=== PATIENT | female | born 1980 | race Caucasian/White ===

== ENCOUNTER 2017-03-10 01:14 | Emergency (ER) | payer MEDICAID ==
[~2017-03-10] VITALS: Ht 160 cm; Wt 68.2 kg
[2017-03-10 02:06] LABS: BASO % 0.4 % (0.0-2.0); EOS # 0.1 (0.0-0.7); EOS % 1.2 % (0-4.0); GRAN # 3.3 (1.4-6.5); GRAN % 48.7 % (42.2-75.2); HEMATOCRIT 41.8 % (37.0-47.0); LYMPH # 2.8 (1.2-3.4); MEAN CELL VOLUME 93 fl (80.0-100.0); MEAN CORPUSCULAR HEMOGLOBIN 31 pg (27.0-31.0); MEAN CORPUSCULAR HGB CONC 34 g/dl (33.0-37.0); MEAN PLATELET VOLUME 9.1 fl (7.4-10.4); MONO # 0.5 (0.1-0.6); MONO % 7.6 % (1.7-9.3); PLATELET COUNT 217 K/mm3 (130-400); RED BLOOD COUNT 4.49 M/mm3 (4.10-5.30); REDCELL DISTRIBUTION WIDTH-CV 14.7 % (11.5-14.5); WHITE BLOOD COUNT 6.7 K/mm3 (4.8-10.8)
[2017-03-10 02:16] LABS: PH 7 (5-8); SQUAMOUS EPITHELIAL 0-2 /hpf; URINE APPEARANCE Clear; URINE BACTERIA None Seen /hpf; URINE BILIRUBIN Negative (NEGATIVE); URINE BLOOD Negative (NEGATIVE); URINE COLOR Straw; URINE GLUCOSE Negative (NEGATIVE); URINE KETONE Negative (NEGATIVE); URINE RBC 0-2 /hpf; URINE UROBILINOGEN Negative (NEGATIVE)
[2017-03-10 02:20] LABS: ADJUSTED CALCIUM 8.6 mg/dL (8.4-10.2); ALBUMIN 4.6 gm/dL (3.5-5.0); BILIRUBIN,TOTAL 0.4 mg/dL (0.0-1.0); CALCIUM 9.1 mg/dL (8.4-10.2); CREATININE, serum 0.64 mg/dL (0.52-1.25); POTASSIUM 3.7 mmol/L (3.4-5.0); TOTAL PROTEIN 7.8 gm/dL (6.4-8.2)
[2017-03-10 03:41] LABS: AMPHETAMINE URINE NEGATIVE; BARBITURATES URINE NEGATIVE; BENZODIAZEPINES URINE NEGATIVE; BUPRENORPHINE URINE NEGATIVE; METHADONE URINE NEGATIVE; OPIATES URINE NEGATIVE; OXYCODONE URINE NEGATIVE; PHENCYCLIDINE URINE NEGATIVE; PROPOXYPHENE URINE NEGATIVE; THC CANNABINOIDS URINE NEGATIVE
[2017-03-10 12:47] VITALS: BP 113/76; PULSE 84
[2017-03-10] MEDS ORDERED: NORCO 325 MG-51 TAB PO (12:48)
== END 2017-03-10 13:20 | disposition home or self-care (01) ==
LOC: COL.ER 01:14 → EDBD 01:19 → COL.ER 13:20
PROVIDERS: Emergency Medicine
DX: T74.21XA Adult sexual abuse, confirmed, initial encounter (principal); F10.129 Alcohol abuse with intoxication, unspecified; R10.9 Unspecified abdominal pain; F99 Mental disorder, not otherwise specified; F43.10 Post-traumatic stress disorder, unspecified; Z90.49 Acquired absence of other specified parts of digestive tract; Z32.02 Encounter for pregnancy test, result negative; Y90.6 Blood alcohol level of 120-199 mg/100 ml
CPT/HCPCS: J0696; J1885; J2405; J2550; J2765; J3010; J7030; J7040; Q9967

== ENCOUNTER → 2017-03-10 | Outpatient (REF) ==
[~2017-03-10] VITALS: Ht 160 cm; Wt 68.2 kg
[~2017-03-10] MED LIST: AMITRIPTYLINE H50 M1 PO; ATIVAN 1MG T1 MG/TAB PO; DESYREL 100MG100 MG PO; EFFEXOR-XR150 MG PO; IMITREX 25MG TA25 MG; INDERAL 20MG20 MG PO; KLONOPIN 1MG1 MG PO; LEXAPRO 10MG10 MG PO; NORCO 325 MG-51 TAB PO; PRENATAL1 TA2 PO; PROZAC40 MG PO; SEROQUEL 2525 MG/TAB PO; SLEEP AID25 M1 PO; ZOCOR 20MG20 MG PO
[2017-03-10 10:55] VITALS: BP 102/76; PULSE 87
== END ==
LOC: COL.ER 09:48
DX: T76.21XA Adult sexual abuse, suspected, initial encounter (principal)

== ENCOUNTER 2017-03-21 01:31 | Inpatient (IN) | payer MEDICAID ==
[~2017-03-21] VITALS: Ht 157.5 cm; Wt 59.1 kg
[2017-03-21 02:11] LABS: RED BLOOD COUNT 3.73 M/mm3 (4.10-5.30); WHITE BLOOD COUNT 5.1 K/mm3 (4.8-10.8)
[2017-03-21 02:12] LABS: BASO % 0.4 % (0.0-2.0); EOS % 0.8 % (0-4.0); GRAN # 2.6 (1.4-6.5); LYMPH # 1.9 (1.2-3.4); LYMPH % 37.9 % (20.0-51.0); MEAN CELL VOLUME 93 fl (80.0-100.0); MEAN CORPUSCULAR HGB CONC 34 g/dl (33.0-37.0); MEAN PLATELET VOLUME 9.2 fl (7.4-10.4); MONO # 0.6 (0.1-0.6); MONO % 10.7 % (1.7-9.3); PLATELET COUNT 191 K/mm3 (130-400)
[2017-03-21 02:31] LABS: COLLECTION METHOD CATHETER
[2017-03-21 02:32] LABS: HEMATOCRIT 34.8 % (37.0-47.0); HEMOGLOBIN 11.7 g/dl (12.5-16.0); MEAN CORPUSCULAR HEMOGLOBIN 31 pg (27.0-31.0)
[2017-03-21 02:40] LABS: MUCOUS Present /lpf; PH 5 (5-8); SQUAMOUS EPITHELIAL 0-2 /hpf; URINE APPEARANCE Clear; URINE BACTERIA None Seen /hpf; URINE BILIRUBIN Negative (NEGATIVE); URINE BLOOD 1+ (NEGATIVE); URINE COLOR Yellow; URINE GLUCOSE Negative (NEGATIVE); URINE KETONE 1+ (NEGATIVE); URINE LEUKOCYTE ESTERASE Negative (NEGATIVE); URINE PROTEIN(semi-quant) Negative (NEGATIVE); URINE WBC 0-2 /hpf
[2017-03-21 02:48] LABS: ADJUSTED CALCIUM 8.5 mg/dL (8.4-10.2); ALANINE AMINOTRANSFERASE 35 U/L (9-52); ALBUMIN 3.8 gm/dL (3.5-5.0); ALKALINE PHOSPHATASE 49 U/L (50-136); ANION GAP 9 mmol/L (7-16); BILIRUBIN,TOTAL 0.6 mg/dL (0.0-1.0); BLOOD UREA NITROGEN 20 mg/dL (7-17); C-REACTIVE PROTEIN < 0.5 mg/dL (0.0-0.9); CALCIUM 8.3 mg/dL (8.4-10.2); CARBON DIOXIDE 22 mmol/L (22-30); CHLORIDE 107 mmol/L (98-107); CREATININE, serum 0.66 mg/dL (0.52-1.25); GLUCOSE 78 mg/dL (74-106); LIPASE 213 U/L (23-300); POTASSIUM 3.6 mmol/L (3.4-5.0); SODIUM 139 mmol/L (137-145); TOTAL PROTEIN 6.5 gm/dL (6.4-8.2)
[2017-03-21 03:06] LABS: HCG,QUANTITATIVE 54 mIU/mL (0-5)
[2017-03-21] MEDS ORDERED: PROZAC60 MG (04:42)
[2017-03-21] MEDS ORDERED: WELLBUTRIN XL300 M1 (04:43)
[2017-03-21] MEDS ORDERED: ZOFRAN 4MG T4 MG/TAB PO (04:43)
[2017-03-21] MEDS ORDERED: LIDODERM 5% PATC1 EA (04:44)
[2017-03-21 05:42] VITALS: BP 101/72; PULSE 84; TEMP 97.9
[2017-03-21 06:47] LABS: BASO % 0.7 % (0.0-2.0); EOS # 0.1 (0.0-0.7); EOS % 1.2 % (0-4.0); GRAN # 1.9 (1.4-6.5); GRAN % 43.9 % (42.2-75.2); HEMOGLOBIN 13.1 g/dl (12.5-16.0); LYMPH # 1.9 (1.2-3.4); LYMPH % 44.7 % (20.0-51.0); MEAN CELL VOLUME 95 fl (80.0-100.0); MEAN CORPUSCULAR HEMOGLOBIN 31 pg (27.0-31.0); MEAN CORPUSCULAR HGB CONC 33 g/dl (33.0-37.0); MEAN PLATELET VOLUME 9.2 fl (7.4-10.4); MONO # 0.4 (0.1-0.6); MONO % 9.5 % (1.7-9.3); PLATELET COUNT 186 K/mm3 (130-400); WHITE BLOOD COUNT 4.3 K/mm3 (4.8-10.8)
[2017-03-21 08:53] VITALS: BP 103/61; PULSE 95; TEMP 97.6
[2017-03-21 16:58] LABS: AMPHETAMINE URINE POSITIVE; BARBITURATES URINE NEGATIVE; BENZODIAZEPINES URINE POSITIVE; BUPRENORPHINE URINE NEGATIVE; METHADONE URINE NEGATIVE; OPIATES URINE NEGATIVE; OXYCODONE URINE NEGATIVE; PHENCYCLIDINE URINE NEGATIVE; PROPOXYPHENE URINE NEGATIVE; THC CANNABINOIDS URINE NEGATIVE; TRICYCLIC ANTIDEPRESS URINE NEGATIVE
[2017-03-21 17:07] VITALS: BP 92/58; PULSE 79; TEMP 97.8
[2017-03-21 17:10] VITALS: BP 92/58; PULSE 79; TEMP 97.6
[2017-03-21 21:00] VITALS: BP 113/68; PULSE 89; TEMP 98.2
[2017-03-22 01:00] VITALS: BP 94/63; PULSE 69; TEMP 98.9
[2017-03-22 05:30] VITALS: BP 115/74; PULSE 93; TEMP 98.3
[2017-03-22 07:21] LABS: BASO % 0.5 % (0.0-2.0); EOS # 0.1 (0.0-0.7); EOS % 1.4 % (0-4.0); GRAN # 2.1 (1.4-6.5); GRAN % 48.8 % (42.2-75.2); LYMPH # 1.7 (1.2-3.4); MEAN CELL VOLUME 96 fl (80.0-100.0); MEAN CORPUSCULAR HGB CONC 33 g/dl (33.0-37.0); MEAN PLATELET VOLUME 9.5 fl (7.4-10.4); MONO # 0.4 (0.1-0.6); MONO % 9.1 % (1.7-9.3); PLATELET COUNT 167 K/mm3 (130-400); RED BLOOD COUNT 3.52 M/mm3 (4.10-5.30); WHITE BLOOD COUNT 4.3 K/mm3 (4.8-10.8)
[2017-03-22 07:23] LABS: HEMATOCRIT 33.8 % (37.0-47.0); HEMOGLOBIN 11.1 g/dl (12.5-16.0); MEAN CORPUSCULAR HEMOGLOBIN 32 pg (27.0-31.0)
[2017-03-22 07:45] VITALS: BP 97/67; PULSE 71; TEMP 98
[2017-03-22] MEDS ORDERED: PERCOCET 325 MG1 TA2 PO (09:10)
[2017-03-22] MEDS ORDERED: PROZAC60 MG PO (09:10)
== END 2017-03-22 15:00 | disposition home or self-care (01) | DRG 781 ==
LOC: COL.ER 01:31 → OB 05:15
PROVIDERS: Emergency Medicine; Obstetrics & Gynecology
DX: O26.891 Other specified pregnancy related conditions, first trimester (principal); R10.2 Pelvic and perineal pain; Z3A.01 Less than 8 weeks gestation of pregnancy
CPT/HCPCS: J1170; J2270; J2405; J2550; J7030; J7120

== ENCOUNTER 2017-04-18 00:05 | Emergency (ER) | payer MEDICAID ==
[~2017-04-18] VITALS: Ht 170.2 cm; Wt 63.6 kg
[~2017-04-18 00:05] MED LIST changes: +ADDERALL30 MG PO; +FLAGYL500 MG PO; +LIDODERM 5% PATC1 EA; +PERCOCET 325 MG1 TA2 PO; +PHENERGAN 25 TA25 MG PO; +PROZAC60 MG; +PROZAC60 MG PO; +WELLBUTRIN XL300 M1; +ZOFRAN 4MG T4 MG/TAB PO
[2017-04-18 00:06] VITALS: BP 115/79; TEMP 97.6
[2017-04-18 00:34] LABS: BASO % 0.3 % (0.0-2.0); EOS # 0.1 (0.0-0.7); EOS % 0.6 % (0-4.0); GRAN % 68.9 % (42.2-75.2); HEMATOCRIT 39.5 % (37.0-47.0); HEMOGLOBIN 13.3 g/dl (12.5-16.0); LYMPH % 22.7 % (20.0-51.0); MEAN CELL VOLUME 94 fl (80.0-100.0); MEAN CORPUSCULAR HEMOGLOBIN 32 pg (27.0-31.0); MEAN CORPUSCULAR HGB CONC 34 g/dl (33.0-37.0); MEAN PLATELET VOLUME 9.2 fl (7.4-10.4); MONO # 0.6 (0.1-0.6); MONO % 7.2 % (1.7-9.3); PLATELET COUNT 215 K/mm3 (130-400); WHITE BLOOD COUNT 8.7 K/mm3 (4.8-10.8)
[2017-04-18 00:43] LABS: ADJUSTED CALCIUM 9.2 mg/dL (8.4-10.2); ALBUMIN 4.2 gm/dL (3.5-5.0); BILIRUBIN,TOTAL 0.4 mg/dL (0.0-1.0); CALCIUM 9.4 mg/dL (8.4-10.2); CREATININE, serum 0.59 mg/dL (0.52-1.25); POTASSIUM 3.7 mmol/L (3.4-5.0); TOTAL PROTEIN 7.2 gm/dL (6.4-8.2)
[2017-04-18] MEDS ORDERED: PHENERGAN 25 TA25 MG PO (02:22)
[2017-04-18 02:42] LABS: BASO % 0.3 % (0.0-2.0); EOS % 0.5 % (0-4.0); GRAN # 5.5 (1.4-6.5); GRAN % 69.4 % (42.2-75.2); HEMATOCRIT 38.5 % (37.0-47.0); HEMOGLOBIN 13.1 g/dl (12.5-16.0); LYMPH # 1.8 (1.2-3.4); LYMPH % 22.6 % (20.0-51.0); MEAN CELL VOLUME 93 fl (80.0-100.0); MEAN CORPUSCULAR HEMOGLOBIN 32 pg (27.0-31.0); MEAN CORPUSCULAR HGB CONC 34 g/dl (33.0-37.0); MEAN PLATELET VOLUME 9.1 fl (7.4-10.4); MONO # 0.6 (0.1-0.6); MONO % 7.1 % (1.7-9.3); PLATELET COUNT 193 K/mm3 (130-400); RED BLOOD COUNT 4.16 M/mm3 (4.10-5.30)
[2017-04-18 03:06] VITALS: PULSE 91
== END 2017-04-18 03:06 | disposition home or self-care (01) ==
LOC: COL.ER 00:05
PROVIDERS: Family Medicine
DX: O9A.211 Injury, poisoning and certain other consequences of external causes complicating pregnancy, first trimester (principal); S10.93XA Contusion of unspecified part of neck, initial encounter; S00.83XA Contusion of other part of head, initial encounter; S40.021A Contusion of right upper arm, initial encounter; Z3A.08 8 weeks gestation of pregnancy; W10.9XXA Fall (on) (from) unspecified stairs and steps, initial encounter
CPT/HCPCS: J2270; J2550; J7030

== ENCOUNTER 2017-05-01 20:23 | Emergency (ER) | payer MEDICAID ==
[~2017-05-01] VITALS: Ht 157.5 cm; Wt 59.1 kg
[~2017-05-01 20:23] MED LIST changes: -CEPHALEXIN500 M1 PO; -ZOFRAN ODT4 MG PO
[2017-05-01 21:41] LABS: BASO % 0.2 % (0.0-2.0); EOS % 0.3 % (0-4.0); GRAN # 4.1 (1.4-6.5); GRAN % 65.4 % (42.2-75.2); HEMATOCRIT 38.8 % (37.0-47.0); HEMOGLOBIN 13.4 g/dl (12.5-16.0); LYMPH # 1.5 (1.2-3.4); LYMPH % 23.8 % (20.0-51.0); MEAN CELL VOLUME 92 fl (80.0-100.0); MEAN CORPUSCULAR HEMOGLOBIN 32 pg (27.0-31.0); MEAN CORPUSCULAR HGB CONC 35 g/dl (33.0-37.0); MEAN PLATELET VOLUME 9.1 fl (7.4-10.4); MONO # 0.6 (0.1-0.6); MONO % 10.1 % (1.7-9.3); PLATELET COUNT 188 K/mm3 (130-400); RED BLOOD COUNT 4.22 M/mm3 (4.10-5.30); WHITE BLOOD COUNT 6.3 K/mm3 (4.8-10.8)
[2017-05-01 22:02] LABS: HIV 1/2 Antibodies Non-Reactive; HIV-1p24 Antigen Non-Reactive
[2017-05-01 22:06] LABS: ALANINE AMINOTRANSFERASE 23 U/L (9-52); ALBUMIN 3.8 gm/dL (3.5-5.0); ALKALINE PHOSPHATASE 56 U/L (50-136); ANION GAP 8 mmol/L (7-16); BILIRUBIN,TOTAL 0.4 mg/dL (0.0-1.0); BLOOD UREA NITROGEN 10 mg/dL (7-17); CALCIUM 8.8 mg/dL (8.4-10.2); CARBON DIOXIDE 23 mmol/L (22-30); CHLORIDE 102 mmol/L (98-107); GLUCOSE 91 mg/dL (74-106); LIPASE 226 U/L (23-300); MAGNESIUM 1.9 mg/dL (1.6-2.3); PHOSPHOROUS 3.8 mg/dL (2.5-4.5); POTASSIUM 3.9 mmol/L (3.4-5.0); SODIUM 134 mmol/L (137-145)
[2017-05-01 22:15] LABS: ACETAMINOPHEN < 10 ug/mL (10-30); ALCOHOL(ethanol),MEDICAL < 10 mg/dL; SALICYLATE < 1.0 mg/dL
[2017-05-01 22:50] LABS: COLLECTION METHOD CLEAN CATCH
[2017-05-01 22:57] LABS: MUCOUS Present /lpf; PH 7 (5-8); SQUAMOUS EPITHELIAL 0-2 /hpf; URINE APPEARANCE Clear; URINE BACTERIA None Seen /hpf; URINE BILIRUBIN Negative (NEGATIVE); URINE BLOOD Negative (NEGATIVE); URINE COLOR Straw; URINE GLUCOSE Negative (NEGATIVE); URINE KETONE Trace (NEGATIVE); URINE LEUKOCYTE ESTERASE Negative (NEGATIVE); URINE PROTEIN(semi-quant) Negative (NEGATIVE); URINE RBC 0-2 /hpf; URINE UROBILINOGEN Negative (NEGATIVE); URINE WBC 0-2 /hpf
[2017-05-01 22:59] LABS: HCG,QUANTITATIVE 38693 mIU/mL (0-5)
[2017-05-01 23:05] LABS: AMPHETAMINE URINE NEGATIVE; BARBITURATES URINE NEGATIVE; BENZODIAZEPINES URINE NEGATIVE; BUPRENORPHINE URINE NEGATIVE; METHADONE URINE NEGATIVE; OPIATES URINE NEGATIVE; OXYCODONE URINE NEGATIVE; PHENCYCLIDINE URINE NEGATIVE; PROPOXYPHENE URINE NEGATIVE; THC CANNABINOIDS URINE NEGATIVE; TRICYCLIC ANTIDEPRESS URINE NEGATIVE
[2017-05-02 03:24] VITALS: PULSE 91
[2017-05-02 06:18] VITALS: BP 120/46
== END 2017-05-02 06:48 | disposition home or self-care (01) ==
LOC: COL.ER 20:23
PROVIDERS: Emergency Medicine
DX: O9A.411 Sexual abuse complicating pregnancy, first trimester (principal); S00.83XA Contusion of other part of head, initial encounter; O99.331 Smoking (tobacco) complicating pregnancy, first trimester; F17.210 Nicotine dependence, cigarettes, uncomplicated; Z3A.10 10 weeks gestation of pregnancy; Y04.2XXA Assault by strike against or bumped into by another person, initial encounter; Y07.01 Husband, perpetrator of maltreatment and neglect; Y92.410 Unspecified street and highway as the place of occurrence of the external cause
CPT/HCPCS: J0696; J1170; J2550; J3010; J7030

== ENCOUNTER → 2017-05-01 | Outpatient (REF) ==
[~2017-05-01] VITALS: Ht 157.5 cm; Wt 59.1 kg
[~2017-05-01] MED LIST changes: +CEPHALEXIN500 M1 PO; +ZOFRAN ODT4 MG PO
[2017-05-01 20:29] VITALS: BP 102/68; PULSE 80
== END ==
LOC: COL.ER 20:54
DX: Z04.41 Encounter for examination and observation following alleged adult rape (principal)

== ENCOUNTER 2017-05-14 23:00 | Emergency (ER) | payer MEDICAID ==
[~2017-05-14] VITALS: Ht 157.5 cm; Wt 61.4 kg
[2017-05-14 23:18] VITALS: TEMP 98.6
[2017-05-14] MEDS ORDERED: ZOFRAN ODT4 MG PO (23:18)
[2017-05-14 23:20] LABS: BASO % 0.4 % (0.0-2.0); EOS # 0.1 (0.0-0.7); EOS % 1.5 % (0-4.0); GRAN # 4.4 (1.4-6.5); GRAN % 59.1 % (42.2-75.2); HEMATOCRIT 38.1 % (37.0-47.0); HEMOGLOBIN 12.7 g/dl (12.5-16.0); LYMPH # 2.3 (1.2-3.4); LYMPH % 30.6 % (20.0-51.0); MEAN CELL VOLUME 94 fl (80.0-100.0); MEAN CORPUSCULAR HEMOGLOBIN 31 pg (27.0-31.0); MEAN CORPUSCULAR HGB CONC 33 g/dl (33.0-37.0); MEAN PLATELET VOLUME 8.8 fl (7.4-10.4); MONO # 0.6 (0.1-0.6); MONO % 8.3 % (1.7-9.3); PLATELET COUNT 211 K/mm3 (130-400); RED BLOOD COUNT 4.05 M/mm3 (4.10-5.30); WHITE BLOOD COUNT 7.4 K/mm3 (4.8-10.8)
[2017-05-14 23:30] LABS: ADJUSTED CALCIUM 8.9 mg/dL (8.4-10.2); ALBUMIN 3.9 gm/dL (3.5-5.0); BILIRUBIN,TOTAL 0.3 mg/dL (0.0-1.0); CALCIUM 8.8 mg/dL (8.4-10.2); CREATININE, serum 0.55 mg/dL (0.52-1.25); POTASSIUM 3.8 mmol/L (3.4-5.0); TOTAL PROTEIN 6.9 gm/dL (6.4-8.2)
[2017-05-14 23:46] LABS: PROLACTIN 18.6 ng/mL (3.0-18.6)
[2017-05-14 23:57] LABS: COLLECTION METHOD RANDOM VOIDED
[2017-05-15 00:12] LABS: MUCOUS Present /lpf; PH 7 (5-8); URINE APPEARANCE Clear; URINE BACTERIA Rare /hpf; URINE BILIRUBIN Negative (NEGATIVE); URINE BLOOD Negative (NEGATIVE); URINE COLOR Yellow; URINE GLUCOSE Negative (NEGATIVE); URINE KETONE Negative (NEGATIVE); URINE LEUKOCYTE ESTERASE Negative (NEGATIVE); URINE PROTEIN(semi-quant) Negative (NEGATIVE); URINE RBC 0-2 /hpf; URINE UROBILINOGEN Negative (NEGATIVE); URINE WBC 0-2 /hpf
[2017-05-15 01:00] VITALS: BP 102/54; PULSE 88
== END 2017-05-15 01:33 | disposition home or self-care (01) ==
LOC: COL.ER 23:00
PROVIDERS: Family Medicine
DX: R56.9 Unspecified convulsions (principal)
CPT/HCPCS: J2550; J7030

== ENCOUNTER 2017-06-14 22:37 | Emergency (ER) | payer MEDICAID ==
[~2017-06-14 22:37] MED LIST changes: +ZOFRAN ODT4 MG PO
[2017-06-14 22:49] VITALS: TEMP 99.1
[2017-06-15 00:05] LABS: BASO % 0.1 % (0.0-2.0); EOS # 0.1 (0.0-0.7); EOS % 1.3 % (0-4.0); GRAN # 4.2 (1.4-6.5); GRAN % 59.8 % (42.2-75.2); HEMATOCRIT 37.3 % (37.0-47.0); LYMPH # 2.1 (1.2-3.4); LYMPH % 30.3 % (20.0-51.0); MEAN CELL VOLUME 92 fl (80.0-100.0); MEAN CORPUSCULAR HEMOGLOBIN 32 pg (27.0-31.0); MEAN CORPUSCULAR HGB CONC 35 g/dl (33.0-37.0); MEAN PLATELET VOLUME 8.8 fl (7.4-10.4); MONO # 0.6 (0.1-0.6); MONO % 8.4 % (1.7-9.3); PLATELET COUNT 202 K/mm3 (130-400); RED BLOOD COUNT 4.05 M/mm3 (4.10-5.30); REDCELL DISTRIBUTION WIDTH-CV 13.5 % (11.5-14.5)
[2017-06-15 00:15] LABS: ALBUMIN 3.6 gm/dL (3.5-5.0); BILIRUBIN,TOTAL 0.2 mg/dL (0.0-1.0); CREATININE, serum 0.56 mg/dL (0.52-1.25); POTASSIUM 3.6 mmol/L (3.4-5.0); TOTAL PROTEIN 6.7 gm/dL (6.4-8.2)
[2017-06-15 00:31] LABS: PROLACTIN 26.6 ng/mL (3.0-18.6)
[2017-06-15 00:43] LABS: COLLECTION METHOD CLEAN CATCH
[2017-06-15 00:54] LABS: AMORPHOUS CRYSTAL Present /uL; MUCOUS Present /lpf; PH 8 (5-8); URINE APPEARANCE Cloudy; URINE BACTERIA Many /hpf; URINE BILIRUBIN Negative (NEGATIVE); URINE BLOOD Negative (NEGATIVE); URINE COLOR Yellow; URINE GLUCOSE Negative (NEGATIVE); URINE KETONE Negative (NEGATIVE); URINE LEUKOCYTE ESTERASE Negative (NEGATIVE); URINE NITRATE Negative (NEGATIVE); URINE PROTEIN(semi-quant) Negative (NEGATIVE); URINE RBC 0-2 /hpf; URINE UROBILINOGEN Negative (NEGATIVE)
[2017-06-15] MEDS ORDERED: FLAGYL500 MG PO (01:50)
[2017-06-15] MEDS ORDERED: CEPHALEXIN500 M1 PO (01:50)
[2017-06-15 02:20] VITALS: BP 114/66; PULSE 93
== END 2017-06-15 02:22 | disposition home or self-care (01) ==
LOC: COL.ER 22:37
PROVIDERS: Emergency Medicine
DX: O23.592 Infection of other part of genital tract in pregnancy, second trimester (principal); O23.42 Unspecified infection of urinary tract in pregnancy, second trimester; O99.342 Other mental disorders complicating pregnancy, second trimester; F32.9 Major depressive disorder, single episode, unspecified; F41.9 Anxiety disorder, unspecified; O99.332 Smoking (tobacco) complicating pregnancy, second trimester; F17.210 Nicotine dependence, cigarettes, uncomplicated; Z3A.16 16 weeks gestation of pregnancy; Z93.3 Colostomy status; Z90.89 Acquired absence of other organs; Z98.890 Other specified postprocedural states
CPT/HCPCS: J7030

== ENCOUNTER 2017-06-17 20:29 | Emergency (ER) | payer MEDICAID ==
[~2017-06-17] VITALS: Ht 157.5 cm; Wt 64.5 kg
[~2017-06-17 20:29] MED LIST changes: +CEPHALEXIN500 M1 PO
[2017-06-17 22:13] LABS: INFLUENZA A NEGATIVE; INFLUENZA B NEGATIVE
[2017-06-17 23:55] VITALS: TEMP 99.9
[2017-06-18 02:00] VITALS: BP 99/62; PULSE 106
== END 2017-06-18 02:00 | disposition home or self-care (01) ==
LOC: COL.ER 20:29
PROVIDERS: Nurse Practitioner
DX: O99.512 Diseases of the respiratory system complicating pregnancy, second trimester (principal); J11.1 Influenza due to unidentified influenza virus with other respiratory manifestations; O99.342 Other mental disorders complicating pregnancy, second trimester; F41.9 Anxiety disorder, unspecified; F32.9 Major depressive disorder, single episode, unspecified; F90.9 Attention-deficit hyperactivity disorder, unspecified type; Z3A.17 17 weeks gestation of pregnancy; Z87.891 Personal history of nicotine dependence
CPT/HCPCS: J2550; J7030

== ENCOUNTER 2017-10-25 23:04 | Outpatient (CLI) | payer MEDICAID ==
[~2017-10-25] VITALS: Ht 157.5 cm; Wt 70.0 kg
[2017-10-25 23:00] VITALS: BP 102/68; PULSE 123; TEMP 98.5
[2017-10-25 23:35] VITALS: BP 107/65; PULSE 103
[2017-10-25] MEDS ORDERED: TYLENOL 325MG325 MG PO (23:43)
[2017-10-25] MEDS ORDERED: BENADRYL25 M2 PO (23:43)
[2017-10-26 00:07] VITALS: BP 102/68; PULSE 123; TEMP 98.5
== END 2017-10-26 | disposition home or self-care (01) ==
LOC: LDRO 23:04
DX: O46.8X3 Other antepartum hemorrhage, third trimester (principal); Z3A.35 35 weeks gestation of pregnancy

== ENCOUNTER 2017-11-16 04:19 | Inpatient (IN) | payer MEDICAID ==
[2017-11-16] VITALS (46 sets, daily range): BP systolic 64–124; BP diastolic 33–83; PULSE 43–150; TEMP 97.7–98.8
[~2017-11-16] VITALS: Ht 162.6 cm; Wt 70.9 kg
[~2017-11-16 04:19] MED LIST changes: +BENADRYL25 M2 PO; +TYLENOL 325MG325 MG PO
[2017-11-16 05:15] LABS: BASO % 0.4 % (0.0-2.0); EOS # 0.1 (0.0-0.7); EOS % 1.1 % (0-4.0); GRAN # 4.7 (1.4-6.5); GRAN % 65.8 % (42.2-75.2); HEMOGLOBIN 10.3 g/dl (12.5-16.0); LYMPH # 1.7 (1.2-3.4); LYMPH % 23.7 % (20.0-51.0); MEAN CELL VOLUME 84 fl (80.0-100.0); MEAN CORPUSCULAR HEMOGLOBIN 27 pg (27.0-31.0); MEAN CORPUSCULAR HGB CONC 32 g/dl (33.0-37.0); MEAN PLATELET VOLUME 9.4 fl (7.4-10.4); MONO # 0.6 (0.1-0.6); MONO % 8.3 % (1.7-9.3); PLATELET COUNT 184 K/mm3 (130-400); RED BLOOD COUNT 3.88 M/mm3 (4.10-5.30); REDCELL DISTRIBUTION WIDTH-CV 15.1 % (11.5-14.5)
[2017-11-16 05:17] LABS: HEMATOCRIT 32.6 % (37.0-47.0)
[2017-11-16] MEDS ORDERED: BUSPAR10 MG PO (05:54)
[2017-11-16] MEDS ORDERED: KLONOPIN2 MG PO (05:55)
[2017-11-16] MEDS ORDERED: PROZAC40 MG PO (05:56)
[2017-11-16] MEDS ORDERED: VISTARIL 2525 MG/CAP PO (05:56)
[2017-11-16] MEDS ORDERED: VALTREX1 GM PO (05:57)
[2017-11-16 08:08] LABS: TRICYCLIC ANTIDEPRESS URINE NEGATIVE
[2017-11-17 02:00] VITALS: BP 102/57; PULSE 92; TEMP 98.1
[2017-11-17] MEDS ORDERED: PERCOCET 325 MG1 TA2 PO (08:22)
[2017-11-17] MEDS ORDERED: MOTRIN 800800 MG/TAB PO (08:22)
[2017-11-17 08:25] VITALS: BP 101/67; PULSE 96; TEMP 97
[2017-11-17 17:00] VITALS: BP 99/69; PULSE 84; TEMP 97.7
[2017-11-17 19:43] VITALS: BP 86/46; PULSE 87; TEMP 97.8
[2017-11-17 20:00] LABS: BASO % 0.2 % (0.0-2.0); EOS # 0.1 (0.0-0.7); EOS % 1.2 % (0-4.0); GRAN # 6.1 (1.4-6.5); GRAN % 67.2 % (42.2-75.2); LYMPH # 2.3 (1.2-3.4); MEAN CELL VOLUME 85 fl (80.0-100.0); MEAN CORPUSCULAR HGB CONC 31 g/dl (33.0-37.0); MEAN PLATELET VOLUME 9.1 fl (7.4-10.4); MONO # 0.5 (0.1-0.6); PLATELET COUNT 194 K/mm3 (130-400); RED BLOOD COUNT 3.72 M/mm3 (4.10-5.30); REDCELL DISTRIBUTION WIDTH-CV 15.3 % (11.5-14.5)
[2017-11-17 20:05] LABS: HEMATOCRIT 31.5 % (37.0-47.0); HEMOGLOBIN 9.8 g/dl (12.5-16.0); MEAN CORPUSCULAR HEMOGLOBIN 26 pg (27.0-31.0)
[2017-11-17 21:38] VITALS: BP 107/78; PULSE 84
[2017-11-18 07:03] VITALS: BP 101/67; PULSE 80; TEMP 98.3
== END 2017-11-18 13:30 | disposition home or self-care (01) | DRG 775 ==
LOC: LDRO 04:19 → OB 04:20 → LDR 04:20 → OB 14:00
PROVIDERS: Obstetrics & Gynecology
PROC: 10D07Z6 Extraction of Products of Conception, Vacuum, Via Natural or Artificial Opening (ICD-10-PCS; principal; 2017-11-16)
PROC: 0HQ9XZZ Repair Perineum Skin, External Approach (ICD-10-PCS; 2017-11-16)
DX: O76 Abnormality in fetal heart rate and rhythm complicating labor and delivery (principal); O70.0 First degree perineal laceration during delivery; Z3A.38 38 weeks gestation of pregnancy; Z37.0 Single live birth; O99.344 Other mental disorders complicating childbirth; F41.8 Other specified anxiety disorders; F43.12 Post-traumatic stress disorder, chronic; F90.9 Attention-deficit hyperactivity disorder, unspecified type
CPT/HCPCS: J2210; J2590; J2795; J7120

== ENCOUNTER 2017-12-20 16:28 | Emergency (ER) | payer MEDICAID ==
[~2017-12-20] VITALS: Ht 154.9 cm; Wt 60.0 kg
[~2017-12-20 16:28] MED LIST changes: +BUSPAR10 MG PO; +KLONOPIN2 MG PO; +MOTRIN 800800 MG/TAB PO; +VALTREX1 GM PO; +VISTARIL 2525 MG/CAP PO
[2017-12-20 16:34] VITALS: TEMP 98.1
[2017-12-20] MEDS ORDERED: ADDERALL5 MG PO (16:49)
[2017-12-20] MEDS ORDERED: WELLBUTRIN 75MG75 MG PO (16:49)
[2017-12-20 18:32] VITALS: BP 125/93; PULSE 99
== END 2017-12-20 18:32 | disposition home or self-care (01) ==
LOC: COL.ER 16:28
DX: T74.21XA Adult sexual abuse, confirmed, initial encounter (principal); T74.11XA Adult physical abuse, confirmed, initial encounter; F17.210 Nicotine dependence, cigarettes, uncomplicated; F43.10 Post-traumatic stress disorder, unspecified

== ENCOUNTER 2018-05-14 06:55 | Emergency (ER) | payer MEDICAID ==
[~2018-05-14] VITALS: Ht 157.5 cm; Wt 59.1 kg
[~2018-05-14 06:55] MED LIST changes: +ADDERALL5 MG PO; +WELLBUTRIN 75MG75 MG PO
[2018-05-14 07:42] VITALS: BP 123/64; PULSE 85; TEMP 97.6
== END 2018-05-14 07:43 | disposition home or self-care (01) ==
LOC: COL.ER 06:55
DX: L30.9 Dermatitis, unspecified (principal)

== ENCOUNTER 2018-10-02 18:42 | Emergency (ER) | payer MEDICAID ==
[~2018-10-02] VITALS: Ht 154.9 cm; Wt 61.9 kg
[~2018-10-02 18:42] MED LIST changes: -ADDERALL30 MG; -KLONOPIN 1MG1 MG; -WELLBUTRIN XL150 MG PO
[2018-10-02 19:00] VITALS: TEMP 97.4
[2018-10-02] MEDS ORDERED: PROZAC60 MG (19:25)
[2018-10-02] MEDS ORDERED: WELLBUTRIN XL150 MG PO (19:25)
[2018-10-02] MEDS ORDERED: ADDERALL30 MG (19:26)
[2018-10-02 22:41] VITALS: BP 121/84; PULSE 101
== END 2018-10-02 22:49 | disposition home or self-care (01) ==
LOC: COL.ER 18:42
DX: T76.21XA Adult sexual abuse, suspected, initial encounter (principal); S00.83XA Contusion of other part of head, initial encounter; S10.93XA Contusion of unspecified part of neck, initial encounter; S30.1XXA Contusion of abdominal wall, initial encounter; S30.0XXA Contusion of lower back and pelvis, initial encounter
CPT/HCPCS: J1885; J2405

== ENCOUNTER → 2018-10-02 | Outpatient (CLI) | payer MEDICAID ==
[~2018-10-02] MED LIST changes: +ADDERALL30 MG; +KLONOPIN 1MG1 MG; +WELLBUTRIN XL150 MG PO
--- NOTE | 2018-10-02 22:45 | NUR ---
Per E.R. Nurse pt is refusing examination at this time and is to be discharged from the Emergency Room to return home.
== END ==
LOC: LDRO 18:48
DX: Z04.41 Encounter for examination and observation following alleged adult rape (principal)

== ENCOUNTER → 2018-10-02 | Outpatient (REF) ==
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
== END ==
LOC: LDRO 18:50
DX: Z04.41 Encounter for examination and observation following alleged adult rape (principal)

== ENCOUNTER 2018-10-04 02:28 | Outpatient (CLI) | payer MEDICAID ==
[~2018-10-04 02:28] MED LIST changes: -KLONOPIN 1MG1 MG
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
[2018-10-05] MEDS ORDERED: KLONOPIN 1MG1 MG (01:54)
== END 2018-10-04 13:45 | disposition still patient (30) ==
LOC: LDRO 02:28 → LDR 03:00 → LDRO 13:45 → LDR 10-06 03:00
DX: Z04.41 Encounter for examination and observation following alleged adult rape (principal)
CPT/HCPCS: OP

== ENCOUNTER 2018-10-04 13:49 | Day surgery (SDC) | payer MEDICAID ==
[~2018-10-04] VITALS: Ht 154.9 cm; Wt 60.4 kg
[2018-10-04 14:48] LABS: BASO % 0.4 % (0.0-2.0); EOS # 0.1 (0.0-0.7); EOS % 1.3 % (0-4.0); GRAN # 2.6 (1.4-6.5); GRAN % 49.5 % (42.2-75.2); HEMATOCRIT 37.5 % (37.0-47.0); HEMOGLOBIN 12.4 g/dl (12.5-16.0); LYMPH # 1.8 (1.2-3.4); LYMPH % 34.8 % (20.0-51.0); MEAN CELL VOLUME 86 fl (80.0-100.0); MEAN CORPUSCULAR HEMOGLOBIN 28 pg (27.0-31.0); MEAN CORPUSCULAR HGB CONC 33 g/dl (33.0-37.0); MEAN PLATELET VOLUME 9.4 fl (7.4-10.4); MONO # 0.7 (0.1-0.6); MONO % 13.8 % (1.7-9.3); PLATELET COUNT 188 K/mm3 (130-400); RED BLOOD COUNT 4.36 M/mm3 (4.10-5.30); REDCELL DISTRIBUTION WIDTH-CV 14.9 % (11.5-14.5)
[2018-10-04 14:58] LABS: ALBUMIN 3.8 gm/dL (3.5-5.0); BILIRUBIN,TOTAL 0.6 mg/dL (0.0-1.0); CREATININE, serum 0.7 (0.52-1.25); POTASSIUM 3.6 mmol/L (3.4-5.0); TOTAL PROTEIN 6.6 gm/dL (6.4-8.2)
[2018-10-04 16:22] LABS: TRICYCLIC ANTIDEPRESS URINE NEGATIVE
--- NOTE | 2018-10-04 22:45 | NUR ---
Pt arrived to room 342, transferred per bed by PACU staff. Pt very drowsy but easy to wake, answers yes/no questions appropriately. VS WNL. IV patent, IVF's infusing. Pt denies pain or other c/o. Call light in reach, bed alarm on. Will monitor closely.
[2018-10-04 23:03] VITALS: BP 118/74; PULSE 69; TEMP 98.1
[2018-10-05] VITALS: BP 118/74; PULSE 69; TEMP 98.1
[2018-10-05 00:30] VITALS: PULSE 72
[2018-10-05 01:00] VITALS: PULSE 88
[2018-10-05] MEDS ORDERED: KLONOPIN 1MG1 MG (01:54)
[2018-10-05 04:07] VITALS: BP 106/64; PULSE 78; TEMP 98
--- NOTE | 2018-10-05 05:01 | NUR ---
Pt resting in bed, condition unchanged. Pt has remained drowsy but easy to wake, rested well c very few needs since admit. No needs at this time. Call light in reach.
--- NOTE | 2018-10-05 07:46 | NUR ---
Patient has woke up. Tearful this am. purse lip breathing, tried to be a positve with her. She is Wondering where her son is. Spoke with OB nurse who will bring her son up stairs.She will also talk to SANE nurse. Patient is concerned about missing a [facility] interview today. SHe is wanting her cell phine that her son has. She reports pain & does not understand why. Voicemail left with Dr. Engel. WIll await a return call.
--- NOTE | 2018-10-05 08:05 | NUR ---
Patient medicated with motrin for pain. She is going to order breakfast. Provided ice & Pepsi for patient. She again asked about her son. Called house supervisoer & OB nurse again. She is wanting to see her son.
[2018-10-05 08:38] VITALS: BP 118/78; PULSE 98; TEMP 99
--- NOTE | 2018-10-05 08:50 | NUR ---
Spoke with social work, offered crisis center services to patient, she looked at me & asked why she would need that. SHe is eating breakfast & going to get dressed
--- NOTE | 2018-10-05 09:19 | NUR ---
Patient ready to discharge called 3 times that she needed to leave. Reviewed with patient all paperwork & patient ambulated out with Shirt Trimmer to her car. Int DC. Patient dressed and took all belongings. patient son with her
--- NOTE | 2018-10-05 09:30 | NUR ---
SW spoke with nurse to inquire if patient would like SW help with getting set up with the [facility]. Nurse reported patient does not feel the need to utilize that fci.
--- NOTE | 2018-10-05 10:19 | NUR ---
Initial visit; Patient thanked Staff Psychologist for introducing herself and offering God's blessings.
== END 2018-10-05 09:20 | disposition home or self-care (01) ==
LOC: COL.ER 13:49 → SDCO 20:15 → COL.ER 20:15 → SURG 20:15 → SDCO 10-05 09:20 → SURG 10-05 09:20
PROVIDERS: Emergency Medicine
DX: T18.5XXA Foreign body in anus and rectum, initial encounter (principal); T74.21XA Adult sexual abuse, confirmed, initial encounter; F17.210 Nicotine dependence, cigarettes, uncomplicated; F32.9 Major depressive disorder, single episode, unspecified; F41.9 Anxiety disorder, unspecified
CPT/HCPCS: OP; J1170; J1885; J2060; J2250; J2405; J2704; J3010; J7030; Q9967

== ENCOUNTER → 2018-10-04 | Outpatient (REF) ==
[~2018-10-04] MED LIST changes: +ADDERALL30 MG; +KLONOPIN 1MG1 MG; +WELLBUTRIN XL150 MG PO
== END ==
LOC: LDRO 02:30
DX: Z04.41 Encounter for examination and observation following alleged adult rape (principal)
CPT/HCPCS: J2250

== ENCOUNTER → 2018-10-04 | Emergency (ER) | payer MEDICAID ==
[~2018-10-04] VITALS: Ht 154.9 cm; Wt 61.4 kg
[2018-10-04 02:12] VITALS: BP 137/88; PULSE 96; TEMP 97.4
== END ==
LOC: COL.ER 02:09
DX: T76.21XA Adult sexual abuse, suspected, initial encounter (principal)
CPT/HCPCS: J2270; J2550

== ENCOUNTER 2019-01-09 13:38 | Emergency (ER) | payer MEDICAID ==
[~2019-01-09] VITALS: Ht 154.9 cm; Wt 58.2 kg
[~2019-01-09 13:38] MED LIST changes: +KLONOPIN 1MG1 MG
[2019-01-09 13:40] VITALS: TEMP 98.3
[2019-01-09] MEDS ORDERED: WELLBUTRIN XL300 M1 PO (14:28)
[2019-01-09] MEDS ORDERED: CELEXA40 MG PO (14:30)
[2019-01-09 14:47] LABS: BASO % 0.3 % (0.0-2.0); EOS % 0.3 % (0-4.0); GRAN # 3.5 (1.4-6.5); GRAN % 61.6 % (42.2-75.2); HEMATOCRIT 36.9 % (37.0-47.0); HEMOGLOBIN 12.1 g/dl (12.5-16.0); LYMPH # 1.5 (1.2-3.4); LYMPH % 26.9 % (20.0-51.0); MEAN CELL VOLUME 86 fl (80.0-100.0); MEAN CORPUSCULAR HEMOGLOBIN 28 pg (27.0-31.0); MEAN CORPUSCULAR HGB CONC 33 g/dl (33.0-37.0); MEAN PLATELET VOLUME 9.1 fl (7.4-10.4); MONO # 0.6 (0.1-0.6); MONO % 10.7 % (1.7-9.3); PLATELET COUNT 275 K/mm3 (130-400); RED BLOOD COUNT 4.29 M/mm3 (4.10-5.30); REDCELL DISTRIBUTION WIDTH-CV 15.5 % (11.5-14.5)
[2019-01-09 15:04] LABS: ALBUMIN 4.2 gm/dL (3.5-5.0); BILIRUBIN,TOTAL 0.7 mg/dL (0.0-1.0); CALCIUM 9.1 mg/dL (8.4-10.2); CREATININE, serum 0.62 (0.52-1.25); POTASSIUM 3.8 mmol/L (3.4-5.0); TOTAL PROTEIN 7.2 gm/dL (6.4-8.2)
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
[2019-01-09] MEDS ORDERED: NORCO 325 MG-51 TAB PO (17:20)
[2019-01-09 17:37] LABS: COLLECTION METHOD CLEAN CATCH
[2019-01-09 17:50] LABS: MUCOUS Present /lpf; PH 5 (5-8); URINE APPEARANCE Clear; URINE BACTERIA None Seen /hpf; URINE BILIRUBIN Negative (NEGATIVE); URINE BLOOD Negative (NEGATIVE); URINE COLOR Yellow; URINE GLUCOSE Negative (NEGATIVE); URINE KETONE 1+ (NEGATIVE); URINE LEUKOCYTE ESTERASE Negative (NEGATIVE); URINE NITRATE Negative (NEGATIVE); URINE PROTEIN(semi-quant) Negative (NEGATIVE); URINE RBC None Seen /hpf; URINE UROBILINOGEN Negative (NEGATIVE)
[2019-01-09] MEDS ORDERED: ZOFRAN ODT4 MG PO (18:26)
[2019-01-09 18:43] VITALS: BP 122/82; PULSE 104
== END 2019-01-09 18:43 | disposition home or self-care (01) ==
LOC: COL.ER 13:38
PROVIDERS: Physician Assistant
DX: R10.32 Left lower quadrant pain (principal); R55 Syncope and collapse; F41.9 Anxiety disorder, unspecified; F32.9 Major depressive disorder, single episode, unspecified; F43.10 Post-traumatic stress disorder, unspecified; F98.8 Other specified behavioral and emotional disorders with onset usually occurring in childhood and adolescence; F17.210 Nicotine dependence, cigarettes, uncomplicated; Z91.410 Personal history of adult physical and sexual abuse
CPT/HCPCS: J1170; J1885; J2060; J2405; J7030; Q9967

== ENCOUNTER 2019-07-25 12:46 | Emergency (ER) | payer MEDICAID ==
[~2019-07-25] VITALS: Ht 154.9 cm; Wt 59.1 kg
[~2019-07-25 12:46] MED LIST changes: +CELEXA40 MG PO; +WELLBUTRIN XL300 M1 PO
[2019-07-25 12:58] VITALS: TEMP 103
[2019-07-25] MEDS ORDERED: TAMIFLU 75MG75 MG PO (13:56)
[2019-07-25 14:48] VITALS: BP 109/69; PULSE 113
== END 2019-07-25 15:25 | disposition home or self-care (01) ==
LOC: COL.ER 12:46
DX: J11.1 Influenza due to unidentified influenza virus with other respiratory manifestations (principal); F17.210 Nicotine dependence, cigarettes, uncomplicated
CPT/HCPCS: J1885; J2405; J7030

== ENCOUNTER 2019-08-02 19:19 | Emergency (ER) | payer MEDICAID ==
[~2019-08-02] VITALS: Ht 154.9 cm; Wt 58.6 kg
[~2019-08-02 19:19] MED LIST changes: +TAMIFLU 75MG75 MG PO
[2019-08-02 19:26] VITALS: BP 107/71; TEMP 98.6
[2019-08-02 20:04] LABS: BASO % 0.1 % (0.0-2.0); EOS % 0.6 % (0-4.0); GRAN # 4.2 (1.4-6.5); HEMATOCRIT 42.4 % (37.0-47.0); HEMOGLOBIN 13.6 g/dl (12.5-16.0); LYMPH # 2.1 (1.2-3.4); LYMPH % 29.8 % (20.0-51.0); MEAN CELL VOLUME 88 fl (80.0-100.0); MEAN CORPUSCULAR HEMOGLOBIN 28 pg (27.0-31.0); MEAN CORPUSCULAR HGB CONC 32 g/dl (33.0-37.0); MEAN PLATELET VOLUME 9.4 fl (7.4-10.4); MONO # 0.6 (0.1-0.6); MONO % 8.2 % (1.7-9.3); PLATELET COUNT 312 K/mm3 (130-400); RED BLOOD COUNT 4.83 M/mm3 (4.10-5.30); REDCELL DISTRIBUTION WIDTH-CV 15.2 % (11.5-14.5)
[2019-08-02 20:16] LABS: ALBUMIN 4.9 gm/dL (3.5-5.0); BILIRUBIN,TOTAL 0.8 mg/dL (0.0-1.0); CALCIUM 9.6 mg/dL (8.4-10.2); CREATININE, serum 0.59 (0.52-1.25); POTASSIUM 3.2 mmol/L (3.4-5.0); TOTAL PROTEIN 8.1 gm/dL (6.4-8.2)
[2019-08-02] MEDS ORDERED: ANTIVERT 25MG25 MG PO (20:23)
[2019-08-02] MEDS ORDERED: ZOFRAN 4MG T4 MG/TAB PO (20:23)
[2019-08-02 20:33] LABS: PROLACTIN 22.5 ng/mL (3.0-18.6)
[2019-08-02] MEDS ORDERED: KLONOPIN 0.5MG0.5 MG PO (22:18)
[2019-08-02 22:41] VITALS: PULSE 91
== END 2019-08-02 20:40 | disposition home or self-care (01) ==
LOC: COL.ER 19:19
PROVIDERS: Emergency Medicine
DX: R55 Syncope and collapse (principal); R42 Dizziness and giddiness
CPT/HCPCS: J3360; J7030

== ENCOUNTER 2019-11-27 05:01 | Emergency (ER) | payer MEDICAID ==
[~2019-11-27] VITALS: Ht 154.9 cm; Wt 58.2 kg
[~2019-11-27 05:01] MED LIST changes: +ANTIVERT 25MG25 MG PO; +KLONOPIN 0.5MG0.5 MG PO
[2019-11-27 05:07] VITALS: TEMP 98
[2019-11-27 07:39] VITALS: BP 111/58; PULSE 89
== END 2019-11-27 07:42 | disposition home or self-care (01) ==
LOC: COL.ER 05:01
DX: S06.0X9A Concussion with loss of consciousness of unspecified duration, initial encounter (principal); F32.9 Major depressive disorder, single episode, unspecified; F41.9 Anxiety disorder, unspecified; F17.210 Nicotine dependence, cigarettes, uncomplicated; Z88.6 Allergy status to analgesic agent; Z32.02 Encounter for pregnancy test, result negative; W20.8XXA Other cause of strike by thrown, projected or falling object, initial encounter; Y93.89 Activity, other specified; Y92.009 Unspecified place in unspecified non-institutional (private) residence as the place of occurrence of the external cause

== ENCOUNTER 2020-04-05 02:24 | Emergency (ER) | payer MEDICAID ==
[~2020-04-05] VITALS: Ht 157.5 cm; Wt 54.5 kg
[2020-04-05 02:44] VITALS: TEMP 97.9
[2020-04-05 03:16] LABS: BASO % 0.5 % (0.0-2.0); EOS # 0.1 (0.0-0.7); EOS % 1.8 % (0-4.0); GRAN # 2.9 (1.4-6.5); GRAN % 51.9 % (42.2-75.2); HEMOGLOBIN 11.9 g/dl (12.5-16.0); LYMPH # 1.9 (1.2-3.4); LYMPH % 34.5 % (20.0-51.0); MEAN CELL VOLUME 88 fl (80.0-100.0); MEAN CORPUSCULAR HEMOGLOBIN 28 pg (27.0-31.0); MEAN CORPUSCULAR HGB CONC 32 g/dl (33.0-37.0); MONO # 0.6 (0.1-0.6); MONO % 11.1 % (1.7-9.3); PLATELET COUNT 331 K/mm3 (130-400); RED BLOOD COUNT 4.22 M/mm3 (4.10-5.30); REDCELL DISTRIBUTION WIDTH-CV 16.1 % (11.5-14.5)
[2020-04-05 03:29] LABS: ALANINE AMINOTRANSFERASE 17 U/L (4-34); ALBUMIN 4.8 gm/dL (3.5-5.0); ALKALINE PHOSPHATASE 55 U/L (50-136); ANION GAP 9 mmol/L (7-16); AST,SGOT 30 U/L (15-37); BILIRUBIN,TOTAL 0.6 mg/dL (0.0-1.0); BLOOD UREA NITROGEN 18 mg/dL (7-17); CALCIUM 9.3 mg/dL (8.4-10.2); CARBON DIOXIDE 28 mmol/L (22-30); CHLORIDE 105 mmol/L (98-107); CREATININE, serum 0.53 (0.52-1.25); GLUCOSE 94 mg/dL (74-106); POTASSIUM 3.4 mmol/L (3.4-5.0); SODIUM 142 mmol/L (137-145)
[2020-04-05 04:06] LABS: C-REACTIVE PROTEIN < 0.5 mg/dL (0.0-0.9)
[2020-04-05 05:24] LABS: COLLECTION METHOD CLEAN CATCH
[2020-04-05 05:46] LABS: MUCOUS Present /lpf; PH 5 (5-8); URINE APPEARANCE Cloudy; URINE BACTERIA None Seen /hpf; URINE BILIRUBIN Negative (NEGATIVE); URINE BLOOD 1+ (NEGATIVE); URINE COLOR Yellow; URINE GLUCOSE Negative (NEGATIVE); URINE KETONE 1+ (NEGATIVE); URINE LEUKOCYTE ESTERASE 2+ (NEGATIVE); URINE NITRATE Negative (NEGATIVE); URINE PROTEIN(semi-quant) 1+ (NEGATIVE); URINE UROBILINOGEN Negative (NEGATIVE)
[2020-04-05] MEDS ORDERED: ZOFRAN 4MG T4 MG/TAB PO (06:14)
[2020-04-05] MEDS ORDERED: PERCOCET 325 MG1 TA2 PO (06:14)
[2020-04-05] MEDS ORDERED: CEPHALEXIN500 M1 PO (06:14)
[2020-04-05 06:26] VITALS: BP 119/79; PULSE 83
== END 2020-04-05 06:26 | disposition home or self-care (01) ==
LOC: COL.ER 02:24
PROVIDERS: Nurse Practitioner
DX: N39.0 Urinary tract infection, site not specified (principal); R19.7 Diarrhea, unspecified; R19.5 Other fecal abnormalities; G40.909 Epilepsy, unspecified, not intractable, without status epilepticus; F43.10 Post-traumatic stress disorder, unspecified; F41.9 Anxiety disorder, unspecified; F17.210 Nicotine dependence, cigarettes, uncomplicated; Z90.49 Acquired absence of other specified parts of digestive tract; Z88.6 Allergy status to analgesic agent
CPT/HCPCS: J2270; J2405; J3010; J7030

== ENCOUNTER 2020-04-06 21:32 | Emergency (ER) | payer MEDICAID ==
[~2020-04-06] VITALS: Ht 157.5 cm; Wt 54.5 kg
[~2020-04-06 21:32] MED LIST changes: -ADDERALL30 MG
[2020-04-06 21:36] VITALS: TEMP 98
[2020-04-06 21:52] LABS: BASO % 0.6 % (0.0-2.0); EOS # 0.1 (0.0-0.7); EOS % 1.5 % (0-4.0); GRAN # 3.2 (1.4-6.5); GRAN % 60.1 % (42.2-75.2); HEMOGLOBIN 10.7 g/dl (12.5-16.0); LYMPH # 1.6 (1.2-3.4); LYMPH % 29.9 % (20.0-51.0); MEAN CELL VOLUME 88 fl (80.0-100.0); MEAN CORPUSCULAR HEMOGLOBIN 28 pg (27.0-31.0); MEAN CORPUSCULAR HGB CONC 32 g/dl (33.0-37.0); MEAN PLATELET VOLUME 9.1 fl (7.4-10.4); MONO # 0.4 (0.1-0.6); MONO % 7.7 % (1.7-9.3); PLATELET COUNT 276 K/mm3 (130-400); RED BLOOD COUNT 3.77 M/mm3 (4.10-5.30); REDCELL DISTRIBUTION WIDTH-CV 15.9 % (11.5-14.5)
[2020-04-06 21:53] LABS: HEMATOCRIT 33.3 % (37.0-47.0)
[2020-04-07 00:30] VITALS: BP 132/71; PULSE 76
== END 2020-04-07 00:37 | disposition home or self-care (01) ==
LOC: COL.ER 21:32
PROVIDERS: Emergency Medicine
DX: S09.90XA Unspecified injury of head, initial encounter (principal); R10.31 Right lower quadrant pain; R10.32 Left lower quadrant pain; F17.210 Nicotine dependence, cigarettes, uncomplicated; Z90.49 Acquired absence of other specified parts of digestive tract; Z88.6 Allergy status to analgesic agent; W19.XXXA Unspecified fall, initial encounter
CPT/HCPCS: J2405; J3010; J7030; Q9967

== ENCOUNTER 2020-04-08 21:50 | Inpatient (IN) | payer MEDICAID ==
[~2020-04-08] VITALS: Ht 157.5 cm; Wt 120.0 kg
[2020-04-08 22:21] LABS: BASO % 0.6 % (0.0-2.0); EOS # 0.1 (0.0-0.7); EOS % 1.9 % (0-4.0); GRAN # 2.5 (1.4-6.5); GRAN % 52.4 % (42.2-75.2); HEMOGLOBIN 11.4 g/dl (12.5-16.0); LYMPH # 1.7 (1.2-3.4); LYMPH % 34.2 % (20.0-51.0); MEAN CELL VOLUME 88 fl (80.0-100.0); MEAN CORPUSCULAR HEMOGLOBIN 28 pg (27.0-31.0); MEAN CORPUSCULAR HGB CONC 32 g/dl (33.0-37.0); MEAN PLATELET VOLUME 9.3 fl (7.4-10.4); MONO # 0.5 (0.1-0.6); MONO % 10.7 % (1.7-9.3); PLATELET COUNT 265 K/mm3 (130-400); RED BLOOD COUNT 4.07 M/mm3 (4.10-5.30); REDCELL DISTRIBUTION WIDTH-CV 15.9 % (11.5-14.5)
[2020-04-08 22:33] LABS: HEMATOCRIT 35.9 % (37.0-47.0)
[2020-04-08 22:36] LABS: ALANINE AMINOTRANSFERASE 16 U/L (4-34); ALBUMIN 4.2 gm/dL (3.5-5.0); ALKALINE PHOSPHATASE 49 U/L (50-136); ANION GAP 6 mmol/L (7-16); AST,SGOT 28 U/L (15-37); BILIRUBIN,TOTAL 0.3 mg/dL (0.0-1.0); BLOOD UREA NITROGEN 16 mg/dL (7-17); CALCIUM 8.5 mg/dL (8.4-10.2); CARBON DIOXIDE 30 mmol/L (22-30); CHLORIDE 104 mmol/L (98-107); CREATININE, serum 0.55 (0.52-1.25); GLUCOSE 92 mg/dL (74-106); SODIUM 139 mmol/L (137-145); TOTAL PROTEIN 7.1 gm/dL (6.4-8.2)
[2020-04-08 22:40] LABS: ALCOHOL(ethanol),MEDICAL < 10 mg/dL; C-REACTIVE PROTEIN < 0.5 mg/dL (0.0-0.9)
[2020-04-08 22:50] LABS: PROLACTIN 21.6 ng/mL (3.0-18.6)
[2020-04-09] VITALS (14 sets, daily range): BP systolic 102–136; BP diastolic 61–119; PULSE 74–96; TEMP 97.9–98.7
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
--- NOTE | 2020-04-09 10:48 | NUR ---
Dr. Vazquez contacted via surgical technology instructor to update on patient. Physician will come assess patient when available. No further orders.
--- NOTE | 2020-04-09 11:59 | NUR ---
Patient consented for preop COVID-19 test. Collected and sent to lab.
--- NOTE | 2020-04-09 12:13 | NUR ---
Patient refuses preop COVID-19 test. Patient states "they can do it while I'm under anesthesia". Nati UNIT SUPPORT REPRESENTATIVE notified and agrees to plan of care. Emotional support provided to patient.
[2020-04-09 12:15] LABS: HEMATOCRIT 30.8 % (37.0-47.0); HEMOGLOBIN 10.1 g/dl (12.5-16.0)
--- NOTE | 2020-04-09 12:40 | NUR ---
Patient transferred to OR via bed by DAVID Chavez.
[2020-04-09 13:05] LABS: COLLECTION METHOD CLEAN CATCH
[2020-04-09 13:26] LABS: PH 7 (5-8); SQUAMOUS EPITHELIAL 0-2 /hpf; URINE APPEARANCE Clear; URINE BACTERIA Rare /hpf; URINE BILIRUBIN Negative (NEGATIVE); URINE BLOOD 3+ (NEGATIVE); URINE COLOR Yellow; URINE GLUCOSE Negative (NEGATIVE); URINE KETONE Trace (NEGATIVE); URINE LEUKOCYTE ESTERASE Negative (NEGATIVE); URINE NITRATE Negative (NEGATIVE); URINE PROTEIN(semi-quant) Negative (NEGATIVE); URINE RBC >50 /hpf; URINE UROBILINOGEN Negative (NEGATIVE)
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
--- NOTE | 2020-04-09 14:30 | NUR ---
Patient transferred back from PACU and report from Shilpa HERNANDEZ. Patient alert but drowsy. VSS. Peripad clean and dry. SCDs on. Assessment completed. Will monitor per protocol.
--- NOTE | 2020-04-09 15:27 | NUR ---
family worker met with patient and provided a PFA packet. Patient plans to discharge home tomorrow.
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
[2020-04-10 03:15] VITALS: BP 105/82; PULSE 91; TEMP 98.1
[2020-04-10 08:27] LABS: BASO % 0.2 % (0.0-2.0); EOS # 0.1 (0.0-0.7); EOS % 2.2 % (0-4.0); GRAN # 2.4 (1.4-6.5); GRAN % 58.5 % (42.2-75.2); HEMATOCRIT 31.5 % (37.0-47.0); LYMPH # 1.3 (1.2-3.4); LYMPH % 31.7 % (20.0-51.0); MEAN CELL VOLUME 89 fl (80.0-100.0); MEAN CORPUSCULAR HEMOGLOBIN 28 pg (27.0-31.0); MEAN CORPUSCULAR HGB CONC 32 g/dl (33.0-37.0); MEAN PLATELET VOLUME 9.1 fl (7.4-10.4); MONO # 0.3 (0.1-0.6); MONO % 7.4 % (1.7-9.3); PLATELET COUNT 216 K/mm3 (130-400); RED BLOOD COUNT 3.55 M/mm3 (4.10-5.30); REDCELL DISTRIBUTION WIDTH-CV 15.9 % (11.5-14.5)
[2020-04-10 08:29] VITALS: BP 128/88; PULSE 78; TEMP 98.1
--- NOTE | 2020-04-10 09:28 | NUR ---
0800 IN ROOM FOR ASSESSMENT. PATIENT VERY QUITE, AND NO EYE CONTACT NOTED. DOES NOT ANSWER ANY QUESTIONS AT THIS TIME.
--- NOTE | 2020-04-10 09:30 | NUR ---
0810 EMERGENCY LIGHT PULLED BY PATIENT . THIS NURSE AND DENNIS MONTEJO TO ROOM TO FIND PATIENT ON FLOOR CURLED UP IN PAIN. TEARFUL, STATES PAIN IN SEVERE. 0820 DILAUDID 0.5 MG IV GIVEN FOR PAIN AT THIS TIME. ASSISTED PATIENT BACK TO BED. ASK PATIENT IF THIS IS A DEFFERENT PAIN AMD CAN SHE DISCRIBE IT. NO ANSWERS NOTED BY PATIENT. NO EYE CONTACT EITHER.
--- NOTE | 2020-04-10 09:34 | NUR ---
0900 AT PATIENTS BEDSIDE. STATES" PAIN IS LITTLE BETTER". JOSÉ MIGUEL FROM ASSISTANT INVENTORY MANAGER AND MOOK FROM [facility] CASE MANAGEMENT AT BEDSIDE AT THIS TIME. PATIENT COVERS FACE AND STATES "I DO NOT WANT TO TALK TO ANYONE" JOSÉ MIGUEL (SOCIAL WORK) LEAVES ROOM AT THIS TIME AND PATIENT STARTS TO CRY WITH FACE COVERED. THIS NURSE LEAVES ROOM SO MOOK CAN TALK WITH PATIENT
--- NOTE | 2020-04-10 10:51 | NUR ---
1000 MOOK DIRECTOR PROPERTY REMAINS AT BEDSIDE TALKING TO PATINET. SILAS TREJO FROM [facility] [employer]ICE DEPARTMENT HERE TO TALK WITH PATIENT. 1005 THIS NURSE TO BEDSIDE TO CONSENT FOR PATIENT TO TALK WITH [facility] [employer] DE[employer]. PATIENT VERY TEARFUL AND SCARED BUT CONSENTS TO TALK AT THIS TIME. 1015 SILAS FROM [facility] PD AT BEDSIDE TALKING WITH PATIENT. PATIENT REFUSES TO TALK AT THIS TIME. REPSONDS WITH " NOTHING HAPPENED, NOTHING HAPPENED, NO NEED FOR A REPORT." CRIES OUT. PD OFFICER LEAVES ROOM. 1030 PATIENT CRIES AND STATES "I CAN NOT BREATH" PATIENT BREATHING VERY FAST AND CRYING. THIS NURSE REMAINS AT BEDSIDE WITH MOOK ALSO AND TALKS TO PATIENT AND ENCOURAGES PATIENT TO TAKE SLOW DEEP BREATHS, AND TO TRY TO CALM DOWN. 1035 PATIENT STATES" I NEED SOMETHING FOR ANXIETY AND PAIN NOW". CLONAZEPAM 0.5 MG PO AND DILAUDID 0.5 MG IV GIVEN AT THIS TIME. PATIENT DENIES OTHER NEEDS AT THIS TIME. MOOK REMAINS AT BEDSIDE WITH PATIENT.
--- NOTE | 2020-04-10 11:36 | NUR ---
1130 MOOK REMAINS AT BEDSIDE TALKING WITH PATIENT. PATIENT STATES PAIN IS BETTER AND JUST NEEDS AT CUP OF NICE.
[2020-04-10 12:55] VITALS: BP 138/85; PULSE 76; TEMP 98.5
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
--- NOTE | 2020-04-10 13:40 | NUR ---
1230 PATIENT IS ON PHONE FACETIMEING THERAPIST AT THIS TIME. DENIES NEEDS AT THIS TIME.
--- NOTE | 2020-04-10 13:41 | NUR ---
1330 [facility] MUSIC DIRECTOR AT BEDSIDE TALKING WITH PATIENT ABOUT OBTAINING A PROTECTIVE CUSTODY ORDER AT THIS TIME. PATIENT STATES PAIN IS GETTING STRONGER AGAIN. CALLED AND UPDATED. ORDERS TO SWITCH IV MEDS TO PO. 1340 PERCOCET 1 TAB GIVEN AT THIS TIME.
[2020-04-10] MEDS ORDERED: PERCOCET 325 MG1 TA2 PO (14:10)
--- NOTE | 2020-04-10 14:58 | NUR ---
7161 JOSÉ MIGUEL (MANAGER UTILIZATION), MOOK ANAYA FROM [facility] AT BEDSIDE DISCUSSING ALL OPTIONS AND INSTRUCTIONS FOR PATIENT. PATIENT STATES " I WILL WORK ON MY PROTECTIVE ORDER WITH MY THERAPIST". ALL DISCHARGE INSTRUCTIONS GIVEN TO PATIENT AT THIS TIME, WITH VERBAL UNDERSTANDING NOTED.
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
== END 2020-04-10 15:15 | disposition home or self-care (01) | DRG 330 ==
LOC: COL.ER 21:50 → OB 04-09 03:57
PROVIDERS: Emergency Medicine; Nurse Practitioner Family; Surgery; ADMIT Hospitalist
PROC: 0DJD8ZZ Inspection of Lower Intestinal Tract, Via Natural or Artificial Opening Endoscopic (ICD-10-PCS; 2020-04-09)
PROC: 0DQP7ZZ Repair Rectum, Via Natural or Artificial Opening (ICD-10-PCS; principal; 2020-04-09 12:00)
DX: S36.63XA Laceration of rectum, initial encounter (principal); T76.21XA Adult sexual abuse, suspected, initial encounter; S10.93XA Contusion of unspecified part of neck, initial encounter; S70.12XA Contusion of left thigh, initial encounter; S70.11XA Contusion of right thigh, initial encounter; G40.909 Epilepsy, unspecified, not intractable, without status epilepticus; K21.9 Gastro-esophageal reflux disease without esophagitis; D64.9 Anemia, unspecified; F90.9 Attention-deficit hyperactivity disorder, unspecified type; F41.9 Anxiety disorder, unspecified; F32.9 Major depressive disorder, single episode, unspecified; G89.29 Other chronic pain; F17.210 Nicotine dependence, cigarettes, uncomplicated; X58.XXXA Exposure to other specified factors, initial encounter; Z91.410 Personal history of adult physical and sexual abuse; Z88.5 Allergy status to narcotic agent
CPT/HCPCS: 99222-AI; 99232-AI; 99239; J1170; J2060; J2250; J2270; J2405; J2704; J3010; J7030; Q9967

== ENCOUNTER 2020-04-14 03:05 | Emergency (ER) | payer MEDICAID ==
[~2020-04-14] VITALS: Ht 154.9 cm; Wt 54.5 kg
[2020-04-14 03:14] VITALS: TEMP 98.6
[2020-04-14 04:23] LABS: BASO % 0.4 % (0.0-2.0); EOS # 0.1 (0.0-0.7); EOS % 1.4 % (0-4.0); GRAN # 2.6 (1.4-6.5); GRAN % 53.3 % (42.2-75.2); LYMPH # 1.7 (1.2-3.4); LYMPH % 34.8 % (20.0-51.0); MEAN CELL VOLUME 86 fl (80.0-100.0); MEAN CORPUSCULAR HGB CONC 33 g/dl (33.0-37.0); MEAN PLATELET VOLUME 9.3 fl (7.4-10.4); MONO # 0.5 (0.1-0.6); MONO % 9.9 % (1.7-9.3); PLATELET COUNT 228 K/mm3 (130-400); REDCELL DISTRIBUTION WIDTH-CV 15.9 % (11.5-14.5)
[2020-04-14 04:24] LABS: HEMATOCRIT 30.1 % (37.0-47.0); HEMOGLOBIN 9.9 g/dl (12.5-16.0); MEAN CORPUSCULAR HEMOGLOBIN 28 pg (27.0-31.0)
[2020-04-14 04:28] LABS: ALBUMIN 4.3 gm/dL (3.5-5.0); BILIRUBIN,TOTAL 0.5 mg/dL (0.0-1.0); CALCIUM 9.2 mg/dL (8.4-10.2); CREATININE, serum 0.6 (0.52-1.25); POTASSIUM 3.6 mmol/L (3.4-5.0); TOTAL PROTEIN 7.1 gm/dL (6.4-8.2)
[2020-04-14 04:29] LABS: PROTHROMBIN TIME 11.6 SECONDS (9.7-12.8)
[2020-04-14 04:32] LABS: PARTIAL THROMBOPLASTIN TIME 34.7 SECONDS (26.0-37.0)
[2020-04-14] MEDS ORDERED: PERCOCET 325 MG1 TA2 PO ×2 (07:29→07:30)
[2020-04-14 11:14] LABS: COLLECTION METHOD CLEAN CATCH
[2020-04-14 11:30] LABS: MUCOUS Present /lpf; PH 7 (5-8); URINE APPEARANCE Clear; URINE BACTERIA None Seen /hpf; URINE BILIRUBIN Negative (NEGATIVE); URINE BLOOD Negative (NEGATIVE); URINE COLOR Yellow; URINE GLUCOSE Negative (NEGATIVE); URINE KETONE Trace (NEGATIVE); URINE LEUKOCYTE ESTERASE Negative (NEGATIVE); URINE NITRATE Negative (NEGATIVE); URINE PROTEIN(semi-quant) Negative (NEGATIVE); URINE RBC 0-2 /hpf; URINE UROBILINOGEN Negative (NEGATIVE)
[2020-04-14 12:15] VITALS: BP 135/82; PULSE 104
[2020-04-15 15:58] LABS: TRICYCLIC ANTIDEPRESS URINE NEGATIVE
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
== END 2020-04-14 12:42 | disposition home or self-care (01) ==
LOC: COL.ER 03:05
PROVIDERS: Emergency Medicine
DX: T76.21XA Adult sexual abuse, suspected, initial encounter (principal); S00.83XA Contusion of other part of head, initial encounter; S10.93XA Contusion of unspecified part of neck, initial encounter; R10.2 Pelvic and perineal pain; F41.9 Anxiety disorder, unspecified; F43.10 Post-traumatic stress disorder, unspecified; F90.9 Attention-deficit hyperactivity disorder, unspecified type; Z88.6 Allergy status to analgesic agent
CPT/HCPCS: J2060; J2270; J3010; Q9967

== ENCOUNTER 2020-06-05 19:41 | Emergency (ER) | payer MEDICAID ==
[~2020-06-05] VITALS: Ht 165.1 cm; Wt 68.2 kg
[2020-06-05 19:44] VITALS: TEMP 98.3
[2020-06-05 20:41] LABS: BASO % 0.5 % (0.0-2.0); EOS % 0.7 % (0-4.0); GRAN # 3.6 (1.4-6.5); GRAN % 63.2 % (42.2-75.2); HEMOGLOBIN 11.1 g/dl (12.5-16.0); LYMPH # 1.4 (1.2-3.4); LYMPH % 24.5 % (20.0-51.0); MEAN CELL VOLUME 83 fl (80.0-100.0); MEAN CORPUSCULAR HEMOGLOBIN 27 pg (27.0-31.0); MEAN CORPUSCULAR HGB CONC 33 g/dl (33.0-37.0); MEAN PLATELET VOLUME 9.3 fl (7.4-10.4); MONO # 0.6 (0.1-0.6); MONO % 10.9 % (1.7-9.3); PLATELET COUNT 264 K/mm3 (130-400); RED BLOOD COUNT 4.14 M/mm3 (4.10-5.30); REDCELL DISTRIBUTION WIDTH-CV 14.6 % (11.5-14.5)
[2020-06-05 20:52] LABS: ALCOHOL(ethanol),MEDICAL < 10 mg/dL
[2020-06-05 20:55] LABS: ANION GAP 10 mmol/L (7-16); BLOOD UREA NITROGEN 15 mg/dL (7-17); CARBON DIOXIDE 27 mmol/L (22-30); CHLORIDE 103 mmol/L (98-107); CREATININE, serum 0.6 (0.52-1.25); GLUCOSE 97 mg/dL (74-106); POTASSIUM 3.2 mmol/L (3.4-5.0); SODIUM 140 mmol/L (137-145)
[2020-06-05 20:56] LABS: ALANINE AMINOTRANSFERASE 11 U/L (4-34); ALBUMIN 4.4 gm/dL (3.5-5.0); ALKALINE PHOSPHATASE 52 U/L (50-136); AST,SGOT 23 U/L (15-37); BILIRUBIN,TOTAL 0.7 mg/dL (0.0-1.0); CALCIUM 9.1 mg/dL (8.4-10.2); TOTAL PROTEIN 7.3 gm/dL (6.4-8.2)
[2020-06-05 21:01] LABS: HEMATOCRIT 34.2 % (37.0-47.0)
[2020-06-05 22:25] VITALS: BP 103/68; PULSE 82
== END 2020-06-05 22:30 | disposition home or self-care (01) ==
LOC: COL.ER 19:41
PROVIDERS: Nurse Practitioner
DX: T74.11XA Adult physical abuse, confirmed, initial encounter (principal); S00.83XA Contusion of other part of head, initial encounter; S10.93XA Contusion of unspecified part of neck, initial encounter; F17.200 Nicotine dependence, unspecified, uncomplicated; Z90.89 Acquired absence of other organs; Z88.5 Allergy status to narcotic agent; Z32.02 Encounter for pregnancy test, result negative; Y04.8XXA Assault by other bodily force, initial encounter
CPT/HCPCS: J1630; J7030; Q9967

== ENCOUNTER 2020-06-08 20:58 | Emergency (ER) | payer MEDICAID ==
[~2020-06-08] VITALS: Ht 157.5 cm; Wt 56.8 kg
[2020-06-08 21:19] VITALS: TEMP 97.4
[2020-06-09 00:44] LABS: BASO % 0.4 % (0.0-2.0); EOS % 0.8 % (0-4.0); GRAN # 2.9 (1.4-6.5); GRAN % 55.8 % (42.2-75.2); LYMPH # 1.7 (1.2-3.4); LYMPH % 32.9 % (20.0-51.0); MEAN CELL VOLUME 83 fl (80.0-100.0); MEAN CORPUSCULAR HEMOGLOBIN 26 pg (27.0-31.0); MEAN CORPUSCULAR HGB CONC 32 g/dl (33.0-37.0); MEAN PLATELET VOLUME 9.4 fl (7.4-10.4); MONO # 0.5 (0.1-0.6); MONO % 9.9 % (1.7-9.3); PLATELET COUNT 225 K/mm3 (130-400); RED BLOOD COUNT 4.21 M/mm3 (4.10-5.30); REDCELL DISTRIBUTION WIDTH-CV 14.8 % (11.5-14.5)
[2020-06-09 00:45] LABS: HEMATOCRIT 34.9 % (37.0-47.0)
[2020-06-09 00:48] LABS: ALBUMIN 4.4 gm/dL (3.5-5.0); BILIRUBIN,TOTAL 0.5 mg/dL (0.0-1.0); CALCIUM 9.1 mg/dL (8.4-10.2); CREATININE, serum 0.6 (0.52-1.25); INR 1.2 (0.8-3.0); PROTHROMBIN TIME 13.1 SECONDS (9.7-12.8); TOTAL PROTEIN 7.2 gm/dL (6.4-8.2)
[2020-06-09] MEDS ORDERED: WELLBUTRIN XL300 M1 PO (00:49)
[2020-06-09] MEDS ORDERED: CELEXA40 MG PO (00:49)
[2020-06-09 00:50] LABS: PARTIAL THROMBOPLASTIN TIME 35.4 SECONDS (26.0-37.0)
[2020-06-09 03:28] LABS: COLLECTION METHOD CLEAN CATCH
[2020-06-09 03:43] LABS: MUCOUS Present /lpf; PH 6 (5-8); URINE APPEARANCE Clear; URINE BACTERIA None Seen /hpf; URINE BILIRUBIN Negative (NEGATIVE); URINE BLOOD 1+ (NEGATIVE); URINE COLOR Yellow; URINE GLUCOSE Negative (NEGATIVE); URINE KETONE Trace (NEGATIVE); URINE LEUKOCYTE ESTERASE Negative (NEGATIVE); URINE NITRATE Negative (NEGATIVE); URINE PROTEIN(semi-quant) Negative (NEGATIVE); URINE RBC 0-2 /hpf; URINE UROBILINOGEN Negative (NEGATIVE); URINE WBC 0-2 /hpf
[2020-06-09 04:53] VITALS: BP 123/94; PULSE 90
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
[2020-06-10] MEDS ORDERED: CEPHALEXIN500 M1 PO (22:51)
== END 2020-06-09 06:20 | disposition home or self-care (01) ==
LOC: COL.ER 20:58
PROVIDERS: Emergency Medicine
DX: T19.2XXA Foreign body in vulva and vagina, initial encounter (principal); T76.21XA Adult sexual abuse, suspected, initial encounter; Z88.6 Allergy status to analgesic agent
CPT/HCPCS: J0696; J1200; J2060; J2270; J7030; Q9967

== ENCOUNTER 2020-06-10 20:40 | Emergency (ER) | payer MEDICAID ==
[2020-06-10 20:40] VITALS: BP 146/102
[2020-06-10 21:28] LABS: COLLECTION METHOD CLEAN CATCH
[2020-06-10 21:36] LABS: BASO % 0.4 % (0.0-2.0); EOS # 0.1 (0.0-0.7); EOS % 1.8 % (0-4.0); GRAN # 3.4 (1.4-6.5); GRAN % 62.3 % (42.2-75.2); HEMOGLOBIN 10.7 g/dl (12.5-16.0); LYMPH # 1.4 (1.2-3.4); LYMPH % 25.5 % (20.0-51.0); MEAN CELL VOLUME 83 fl (80.0-100.0); MEAN CORPUSCULAR HEMOGLOBIN 27 pg (27.0-31.0); MEAN CORPUSCULAR HGB CONC 32 g/dl (33.0-37.0); MEAN PLATELET VOLUME 9.8 fl (7.4-10.4); MONO # 0.5 (0.1-0.6); MONO % 9.8 % (1.7-9.3); PLATELET COUNT 220 K/mm3 (130-400); RED BLOOD COUNT 4.02 M/mm3 (4.10-5.30); REDCELL DISTRIBUTION WIDTH-CV 14.6 % (11.5-14.5)
[2020-06-10 21:39] LABS: BUDDING YEAST Present /hpf; MUCOUS Present /lpf; PH 8 (5-8); URINE APPEARANCE Cloudy; URINE BACTERIA Rare /hpf; URINE BILIRUBIN Negative (NEGATIVE); URINE BLOOD 1+ (NEGATIVE); URINE COLOR Yellow; URINE GLUCOSE Negative (NEGATIVE); URINE KETONE Negative (NEGATIVE); URINE LEUKOCYTE ESTERASE 2+ (NEGATIVE); URINE NITRATE Negative (NEGATIVE); URINE PROTEIN(semi-quant) Negative (NEGATIVE); URINE UROBILINOGEN Negative (NEGATIVE)
[2020-06-10 21:39] LABS: HEMATOCRIT 33.5 % (37.0-47.0)
[2020-06-10 21:48] LABS: ALBUMIN 3.9 gm/dL (3.5-5.0); BILIRUBIN,TOTAL 0.3 mg/dL (0.0-1.0); CALCIUM 9.1 mg/dL (8.4-10.2); CREATININE, serum 0.65 (0.52-1.25); POTASSIUM 3.5 mmol/L (3.4-5.0); TOTAL PROTEIN 6.6 gm/dL (6.4-8.2)
[2020-06-10] MEDS ORDERED: CEPHALEXIN500 M1 PO (22:51)
[2020-06-11 00:23] VITALS: PULSE 90
== END 2020-06-11 00:47 | disposition home or self-care (01) ==
LOC: COL.ER 20:40
PROVIDERS: Emergency Medicine
DX: N39.0 Urinary tract infection, site not specified (principal); Z88.6 Allergy status to analgesic agent
CPT/HCPCS: J1630; Q9967

== ENCOUNTER → 2020-06-24 | Emergency (ER) | payer MEDICAID ==
[~2020-06-24] VITALS: Ht 165.1 cm; Wt 59.1 kg
[~2020-06-24] MED LIST changes: +ADDERALL30 MG
[2020-06-24 08:14] VITALS: TEMP 97.8
[2020-06-24 09:41] LABS: BASO % 0.5 % (0.0-2.0); EOS % 0.1 % (0-4.0); GRAN # 6.1 (1.4-6.5); GRAN % 72.2 % (42.2-75.2); HEMOGLOBIN 11.6 g/dl (12.5-16.0); LYMPH # 1.5 (1.2-3.4); LYMPH % 17.5 % (20.0-51.0); MEAN CELL VOLUME 81 fl (80.0-100.0); MEAN CORPUSCULAR HEMOGLOBIN 26 pg (27.0-31.0); MEAN CORPUSCULAR HGB CONC 32 g/dl (33.0-37.0); MEAN PLATELET VOLUME 9.2 fl (7.4-10.4); MONO # 0.8 (0.1-0.6); MONO % 9.3 % (1.7-9.3); PLATELET COUNT 444 K/mm3 (130-400); RED BLOOD COUNT 4.48 M/mm3 (4.10-5.30); REDCELL DISTRIBUTION WIDTH-CV 14.9 % (11.5-14.5)
[2020-06-24 09:48] LABS: HEMATOCRIT 36.4 % (37.0-47.0)
[2020-06-24 09:56] LABS: CALCIUM 9.5 mg/dL (8.4-10.2); CREATININE, serum 0.76 (0.52-1.25); POTASSIUM 3.8 mmol/L (3.4-5.0)
[2020-06-24 15:54] LABS: COLLECTION METHOD CLEAN CATCH
[2020-06-24 16:08] LABS: MUCOUS Present /lpf; PH 5 (5-8); SQUAMOUS EPITHELIAL 20-50 /hpf; URINE APPEARANCE Hazy; URINE BACTERIA Rare /hpf; URINE BILIRUBIN Negative (NEGATIVE); URINE BLOOD Negative (NEGATIVE); URINE COLOR Yellow; URINE GLUCOSE Negative (NEGATIVE); URINE KETONE 2+ (NEGATIVE); URINE LEUKOCYTE ESTERASE Negative (NEGATIVE); URINE NITRATE Negative (NEGATIVE); URINE PROTEIN(semi-quant) 1+ (NEGATIVE); URINE UROBILINOGEN Negative (NEGATIVE); URINE WBC >50 /hpf
[2020-06-24 18:09] VITALS: BP 166/94; PULSE 118
== END ==
LOC: COL.ER 08:10
PROVIDERS: Emergency Medicine
DX: S01.411A Laceration without foreign body of right cheek and temporomandibular area, initial encounter (principal); R10.2 Pelvic and perineal pain; F17.210 Nicotine dependence, cigarettes, uncomplicated; Z88.6 Allergy status to analgesic agent; X58.XXXA Exposure to other specified factors, initial encounter
CPT/HCPCS: J0696; J1885; J2270; J2405; J7030; Q9967

== ENCOUNTER 2020-06-25 15:00 | Emergency (ER) | payer MEDICAID ==
[~2020-06-25] VITALS: Ht 154.9 cm; Wt 56.8 kg
[~2020-06-25 15:00] MED LIST changes: -ADDERALL30 MG
[2020-06-25 15:12] VITALS: TEMP 97
[2020-06-25 16:59] VITALS: BP 110/81; PULSE 118
[2020-06-25] MEDS ORDERED: ADDERALL30 MG (19:09)
== END 2020-06-25 17:00 | disposition home or self-care (01) ==
LOC: COL.ER 15:00
DX: T74.21XA Adult sexual abuse, confirmed, initial encounter (principal); T14.8XXA Other injury of unspecified body region, initial encounter; R00.0 Tachycardia, unspecified; F17.200 Nicotine dependence, unspecified, uncomplicated; Z88.5 Allergy status to narcotic agent; X58.XXXA Exposure to other specified factors, initial encounter; Y07.9 Unspecified perpetrator of maltreatment and neglect
CPT/HCPCS: J2270

== ENCOUNTER → 2020-06-25 | Outpatient (CLI) | payer MEDICAID | LOC: COL.ER 09:59 | DX: T74.21XA Adult sexual abuse, confirmed, initial encounter (principal) ==

== ENCOUNTER → 2020-06-25 | Outpatient (REF) | LOC: COL.ER 10:00 | DX: Z04.41 Encounter for examination and observation following alleged adult rape (principal) ==

== ENCOUNTER 2020-09-15 21:39 | Emergency (ER) | payer MEDICAID ==
[~2020-09-15] VITALS: Ht 172.7 cm; Wt 59.1 kg
[~2020-09-15 21:39] MED LIST changes: +ADDERALL30 MG
[2020-09-15 22:15] LABS: BASO % 0.4 % (0.0-2.0); EOS % 0.4 % (0-4.0); GRAN # 5.2 (1.4-6.5); GRAN % 73.8 % (42.2-75.2); HEMATOCRIT 34.6 % (37.0-47.0); HEMOGLOBIN 10.7 g/dl (12.5-16.0); LYMPH # 1.2 (1.2-3.4); LYMPH % 17.3 % (20.0-51.0); MEAN CELL VOLUME 80 fl (80.0-100.0); MEAN CORPUSCULAR HEMOGLOBIN 25 pg (27.0-31.0); MEAN CORPUSCULAR HGB CONC 31 g/dl (33.0-37.0); MEAN PLATELET VOLUME 9.4 fl (7.4-10.4); MONO # 0.6 (0.1-0.6); PLATELET COUNT 281 K/mm3 (130-400); RED BLOOD COUNT 4.31 M/mm3 (4.10-5.30); REDCELL DISTRIBUTION WIDTH-CV 15.9 % (11.5-14.5)
[2020-09-15 22:25] LABS: ALANINE AMINOTRANSFERASE 16 U/L (4-34); ALBUMIN 4.1 gm/dL (3.5-5.0); ALKALINE PHOSPHATASE 47 U/L (50-136); ANION GAP 8 mmol/L (7-16); AST,SGOT 24 U/L (15-37); BILIRUBIN,TOTAL < 0.1 mg/dL (0.0-1.0); BLOOD UREA NITROGEN 16 mg/dL (7-17); CALCIUM 8.7 mg/dL (8.4-10.2); CARBON DIOXIDE 23 mmol/L (22-30); CHLORIDE 106 mmol/L (98-107); CREATININE, serum 0.52 (0.52-1.25); GLUCOSE 90 mg/dL (74-106); POTASSIUM 3.8 mmol/L (3.4-5.0); SODIUM 137 mmol/L (137-145); TOTAL PROTEIN 7.3 gm/dL (6.4-8.2)
[2020-09-16 00:50] VITALS: BP 125/86; PULSE 90
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
--- NOTE | 2020-09-16 13:57 | NUR ---
construction pit worker filed a CPS report #[id number] and contacted Elidia Freire, DCF superviser, of the ED visit and continued concern for patient's 3 children that are in the home. Elidia verbalized appreciation for the information.
[2020-10-15] MEDS ORDERED: CELEXA40 MG PO (17:49)
[2020-10-15] MEDS ORDERED: ZOFRAN ODT4 MG PO (18:06)
== END 2020-09-16 00:47 | disposition left against medical advice (07) ==
LOC: COL.ER 21:39
PROVIDERS: Emergency Medicine
DX: S11.91XA Laceration without foreign body of unspecified part of neck, initial encounter (principal); R10.2 Pelvic and perineal pain; Z23 Encounter for immunization; Z88.5 Allergy status to narcotic agent; Z98.890 Other specified postprocedural states; W10.9XXA Fall (on) (from) unspecified stairs and steps, initial encounter
CPT/HCPCS: Q9967

== ENCOUNTER 2020-09-18 01:55 | Emergency (ER) | payer MEDICAID ==
[~2020-09-18] VITALS: Ht 154.9 cm; Wt 56.4 kg
[2020-09-18 02:52] LABS: BASO % 0.6 % (0.0-2.0); EOS # 0.1 (0.0-0.7); EOS % 1.1 % (0-4.0); GRAN # 3.2 (1.4-6.5); LYMPH # 1.5 (1.2-3.4); LYMPH % 28.1 % (20.0-51.0); MEAN CELL VOLUME 82 fl (80.0-100.0); MEAN CORPUSCULAR HEMOGLOBIN 25 pg (27.0-31.0); MEAN CORPUSCULAR HGB CONC 30 g/dl (33.0-37.0); MEAN PLATELET VOLUME 9.3 fl (7.4-10.4); MONO # 0.6 (0.1-0.6); PLATELET COUNT 304 K/mm3 (130-400); RED BLOOD COUNT 4.47 M/mm3 (4.10-5.30); REDCELL DISTRIBUTION WIDTH-CV 16.3 % (11.5-14.5)
[2020-09-18 02:53] LABS: HEMATOCRIT 36.8 % (37.0-47.0)
[2020-09-18 03:07] LABS: ALANINE AMINOTRANSFERASE 17 U/L (4-34); ALBUMIN 4.5 gm/dL (3.5-5.0); ALKALINE PHOSPHATASE 58 U/L (50-136); ANION GAP 10 mmol/L (7-16); AST,SGOT 27 U/L (15-37); BILIRUBIN,TOTAL 0.5 mg/dL (0.0-1.0); BLOOD UREA NITROGEN 16 mg/dL (7-17); CALCIUM 9.1 mg/dL (8.4-10.2); CARBON DIOXIDE 25 mmol/L (22-30); CHLORIDE 103 mmol/L (98-107); CREATININE, serum 0.56 (0.52-1.25); GLUCOSE 103 mg/dL (74-106); POTASSIUM 3.5 mmol/L (3.4-5.0); SODIUM 139 mmol/L (137-145); TOTAL PROTEIN 8.2 gm/dL (6.4-8.2)
[2020-09-18 03:09] LABS: ACETAMINOPHEN 79 ug/mL (10-30); ALCOHOL(ethanol),MEDICAL < 10 mg/dL; SALICYLATE < 1.0 mg/dL
[2020-09-18 05:52] LABS: COLLECTION METHOD CLEAN CATCH
[2020-09-18 06:07] LABS: MUCOUS Present /lpf; PH 5 (5-8); URINE APPEARANCE Hazy; URINE BACTERIA None Seen /hpf; URINE BILIRUBIN Negative (NEGATIVE); URINE BLOOD Negative (NEGATIVE); URINE COLOR Yellow; URINE GLUCOSE Negative (NEGATIVE); URINE KETONE 1+ (NEGATIVE); URINE LEUKOCYTE ESTERASE Negative (NEGATIVE); URINE NITRATE Negative (NEGATIVE); URINE PROTEIN(semi-quant) 1+ (NEGATIVE); URINE RBC 0-2 /hpf; URINE UROBILINOGEN Negative (NEGATIVE); URINE WBC 0-2 /hpf
[2020-09-18 06:14] LABS: TRICYCLIC ANTIDEPRESS URINE NEGATIVE
[2020-09-18 06:47] VITALS: BP 115/80; TEMP 97.8
--- NOTE | 2020-09-18 08:34 | NUR ---
Blaine Massey [facility]
[2020-09-18 10:05] VITALS: PULSE 95
[2020-10-15] MEDS ORDERED: CELEXA40 MG PO (17:49)
[2020-10-15] MEDS ORDERED: ZOFRAN ODT4 MG PO (18:06)
== END 2020-09-18 10:04 | disposition home or self-care (01) ==
LOC: COL.ER 01:55
PROVIDERS: Emergency Medicine
DX: T39.1X2A Poisoning by 4-Aminophenol derivatives, intentional self-harm, initial encounter (principal); Z90.89 Acquired absence of other organs; Z32.02 Encounter for pregnancy test, result negative; Z88.5 Allergy status to narcotic agent; X83.8XXA Intentional self-harm by other specified means, initial encounter

== ENCOUNTER 2020-09-27 15:22 | Outpatient (RCR) | payer MEDICAID ==
[~2020-09-27] VITALS: Ht 154.9 cm; Wt 55.3 kg
[2020-09-27] MEDS ORDERED: WELLBUTRIN XL300 M1 PO (16:42)
[2020-09-27] MEDS ORDERED: PRIL40 PO (16:42)
[2020-09-27] MEDS ORDERED: ADDERALL30 MG PO (16:44)
[2020-09-27] MEDS ORDERED: PROZAC40 MG PO (16:44)
[2020-09-27 17:11] VITALS: BP 121/86; PULSE 81; TEMP 98.2
--- NOTE | 2020-09-27 17:20 | NUR ---
Initial nulecit infusion completed. IV flushed, pt will remain in dept for 30 mins due to initial dose. Denies needs at this time.
[2020-09-27 17:57] VITALS: BP 117/61; PULSE 109
--- NOTE | 2020-09-27 17:57 | NUR ---
Pt c/o chest pains, "pins and needles feeling" to left arm and rt hand and numbness into left arm. C/o chest discomfort, worse with inspiration. No respiratory difficulty or shortness of breath. VS obtained and stable, slightly tachycardic. Offered to take pt to ED, she refuses at this time. call manager physcian notified of symptoms.
--- NOTE | 2020-09-27 18:23 | NUR ---
Pt states breathing is becoming more difficult and sharp chest pains with inspiration increasing. She decides to be taken to ED at this time for further evaluation and treatment. ED charge nurse Uzma notified and gives room assignment. Dr Moreno updated of pt status and that she will be taken to ED.
--- NOTE | 2020-09-27 18:40 | NUR ---
Bedside report given to DAVID Gusman and HARI Childers in ED. Pharmacist also notified of reaction to nulecit.
[2020-10-15] MEDS ORDERED: CELEXA40 MG PO (17:49)
[2020-10-15] MEDS ORDERED: ZOFRAN ODT4 MG PO (18:06)
== END 2020-09-27 19:00 | disposition home or self-care (01) ==
LOC: EUO 15:22
DX: D50.9 Iron deficiency anemia, unspecified (principal); Z79.899 Other long term (current) drug therapy
CPT/HCPCS: J2916

== ENCOUNTER 2020-09-27 18:24 | Emergency (ER) | payer MEDICAID ==
[~2020-09-27] VITALS: Ht 154.9 cm; Wt 55.0 kg
[~2020-09-27 18:24] MED LIST changes: +PRIL40 PO
[2020-09-27 18:30] VITALS: TEMP 98.3
[2020-09-27 19:27] LABS: BASO % 0.4 % (0.0-2.0); EOS # 0.1 (0.0-0.7); EOS % 0.5 % (0-4.0); GRAN # 7.2 (1.4-6.5); GRAN % 68.5 % (42.2-75.2); HEMATOCRIT 44.3 % (37.0-47.0); HEMOGLOBIN 13.6 g/dl (12.5-16.0); LYMPH # 2.2 (1.2-3.4); LYMPH % 21.3 % (20.0-51.0); MEAN CELL VOLUME 81 fl (80.0-100.0); MEAN CORPUSCULAR HEMOGLOBIN 25 pg (27.0-31.0); MEAN CORPUSCULAR HGB CONC 31 g/dl (33.0-37.0); MEAN PLATELET VOLUME 9.2 fl (7.4-10.4); MONO % 9.1 % (1.7-9.3); PLATELET COUNT 332 K/mm3 (130-400); RED BLOOD COUNT 5.46 M/mm3 (4.10-5.30); REDCELL DISTRIBUTION WIDTH-CV 17.1 % (11.5-14.5)
[2020-09-27 19:37] LABS: ALBUMIN 3.5 gm/dL (3.5-5.0); BILIRUBIN,TOTAL 0.4 mg/dL (0.0-1.0); CALCIUM 8.2 mg/dL (8.4-10.2); CREATININE, serum 0.54 (0.52-1.25); TOTAL PROTEIN 6.2 gm/dL (6.4-8.2)
[2020-09-27 19:43] LABS: POTASSIUM 2.9 mmol/L (3.4-5.0)
[2020-09-27 23:55] VITALS: BP 109/78; PULSE 68
[2020-10-15] MEDS ORDERED: CELEXA40 MG PO (17:49)
[2020-10-15] MEDS ORDERED: ZOFRAN ODT4 MG PO (18:06)
== END 2020-09-27 23:30 | disposition home or self-care (01) ==
LOC: COL.ER 18:24
PROVIDERS: Nurse Practitioner Primary Care
DX: T88.6XXA Anaphylactic reaction due to adverse effect of correct drug or medicament properly administered, initial encounter (principal); E87.6 Hypokalemia; R23.3 Spontaneous ecchymoses; F41.9 Anxiety disorder, unspecified; Z88.5 Allergy status to narcotic agent; Z88.6 Allergy status to analgesic agent; Z79.899 Other long term (current) drug therapy
CPT/HCPCS: J0780; J1200; J2405; J2930; J7030

== ENCOUNTER 2020-10-29 14:00 | Outpatient (RCR) | payer MEDICAID ==
[2020-10-15 17:32] VITALS: BP 114/76; PULSE 109; TEMP 98.4
[2020-10-15 18:19] VITALS: BP 125/60; PULSE 116
--- NOTE | 2020-10-15 18:19 | NUR ---
Pt ambulates to restroom. C/o dizziness while in bathroom, assisted back to recliner chair by wheelchair. BP stable, pt tachycardic. States she feels slightly less dizzy in chair. Call light in reach.
[~2020-10-29] VITALS: Ht 154.9 cm; Wt 55.7 kg
--- NOTE | 2020-11-05 10:55 | NUR ---
Pt has not shown or returned callback for follow up appointments.this nurse spoke with office last week and reported,no callback received.Account will be closed until further notice from pt or office.
== END 2020-11-05 10:56 | disposition still patient (30) ==
LOC: EUO 14:00
DX: D50.9 Iron deficiency anemia, unspecified (principal); Z79.899 Other long term (current) drug therapy
CPT/HCPCS: J1756